=== PATIENT | female | born 1950 | race Caucasian/White ===

== ENCOUNTER → 2016-05-02 | Outpatient (CLI) | payer BC ==
[~2016-05-02] MED LIST: CHOL2000 PO; HYDR-5688 PO; ONDA8TAB6 PO; PROC1TAB5 PO; TRAZ50TA35 PO; VITAMIN D PO
--- NOTE | 2016-05-02 16:06 | ECHOCARDIOGRAM REPORT ---
*NOTICE TO RECEIVING REPUBLICAN AGENCY This information is strictly Confidential and protected under [place] law. [place] law prohibits you from making any further disclosure of this information unless further disclosure is expressly permitted by the written consent of the person to whom it pertains or is authorized by law. A general authorization for the release of medical or other information is not sufficient for this purpose. Hospital accepts no responsibility if the information is made available to any other person, INCLUDING THE PATIENT. Interpretation Summary * Name: ASAF ACUÑA Study Date: 05/02/2016 02:53 PM * Patient Location: [facility] HR: 83 * : 1950 (M/d/yyyy) Gender: Female Height: 66 in * Age: 65 yrs Ethnicity: [place] Weight: 135 lb * Ordering Physician: ALICIA DUPREE CRNP * Performed By: Britney Pan RCS * * Reason For Study: EVAL EF BEFORE RECEIVING HERPECIN * BSA: 1.7 m2 * -- Conclusions -- * 1. Normal LV size. Normal LV wall thickness. * 2. Normal LV systolic function. LVEF 60-65%. No regional wall motion abnormalities. Grade 2 diastolic dysfunction. * 3. Normal RV size and function. * 4. No significant valvular pathology. * 5. Normal estimated PA and RA pressures. * 6. Compared with prior study on 01/26/2016: No significant change Procedure Details * A complete two-dimensional transthoracic echocardiogram was performed (2D, M-mode, Doppler and color flow Doppler). Left Ventricle * The left ventricle is grossly normal size. * There is normal left ventricular wall thickness. * Ejection Fraction = 60-65%. * No regional wall motion abnormalities noted. Right Ventricle * The right ventricle is grossly normal size. * The right ventricular systolic function is normal as assessed by tricuspid annular plane systolic excursion (TAPSE) (normal >1.5 cm). Atria * The left atrial size is normal. * Right atrial size is normal. * No ASD detected; PFO is not assessed. Mitral Valve * The mitral valve is grossly normal. * Significant mitral regurgitation is absent. Tricuspid Valve * The tricuspid valve is not well visualized, but is grossly normal. * There is no tricuspid stenosis. * There is trace tricuspid regurgitation. Aortic Valve * The aortic valve opens well. * The aortic valve is trileaflet. * No hemodynamically significant valvular aortic stenosis. * There is no significant aortic regurgitation. Pulmonic Valve * The pulmonary valve is inadequately visualized, but the Doppler data is adequate for interpretation. * There is no pulmonic valvular stenosis. * There is no significant pulmonary regurgitation. Great Vessels * The aortic root and proximal ascending aorta are normal sized. * No Doppler or imaging evidence of an aortic coarctation. Pericardium/Pleural * There is no pericardial effusion. Great Vessels * Normal inferior vena cava size and collapsability with sniff indicates a normal right atrial pressure of 3 mmHg Left Ventricular Diastolic Function * Diastolic dysfunction, Grade II (pseudonormalization pattern). MMode 2D Measurements and Calculations IVSd 1.0 cm IVSs 1.3 cm LVIDd 4.4 cm LVIDs 3.2 cm LVPWd 0.81 cm LVPWs 1.2 cm IVS/LVPW 1.3 FS 26.4 % EDV(Teich) 87.2 ml ESV(Teich) 41.9 ml EF(Teich) 51.9 % EDV(cubed) 84.5 ml ESV(cubed) 33.7 ml EF(cubed) 60.1 % % IVS thick 25.4 % % LVPW thick 47.6 % LV mass(C)d 130.7 grams LV mass(C)dI 77.2 grams/m\S\2 LV mass(C)s 127.5 grams LV mass(C)sI 75.3 grams/m\S\2 SV(Teich) 45.3 ml SI(Teich) 26.7 ml/m\S\2 SV(cubed) 50.8 ml SI(cubed) 30.0 ml/m\S\2 LVOT diam 2.0 cm LVOT area 3.2 cm\S\2 LVAd ap4 29.1 cm\S\2 LVLd ap4 7.2 cm EDV(MOD-sp4) 95.3 ml EDV(sp4-el) 99.9 ml LVAs ap4 16.6 cm\S\2 LVLs ap4 6.1 cm ESV(MOD-sp4) 38.4 ml ESV(sp4-el) 38.3 ml EF(MOD-sp4) 59.7 % EF(sp4-el) 61.7 % LVAd ap2 23.7 cm\S\2 LVLd ap2 7.0 cm EDV(MOD-sp2) 65.4 ml EDV(sp2-el) 68.0 ml LVAs ap2 14.5 cm\S\2 LVLs ap2 6.4 cm ESV(MOD-sp2) 28.2 ml ESV(sp2-el) 27.9 ml EF(MOD-sp2) 56.9 % EF(sp2-el) 59.1 % LVLd %diff -3.28 % EDV(MOD-bp) 79.5 ml LVLs %diff 3.7 % ESV(MOD-bp) 33.4 ml EF(MOD-bp) 58.0 % SV(MOD-sp4) 56.9 ml SI(MOD-sp4) 33.6 ml/m\S\2 SV(MOD-sp2) 37.2 ml SI(MOD-sp2) 22.0 ml/m\S\2 SV(MOD-bp) 46.1 ml SI(MOD-bp) 27.2 ml/m\S\2 SV(sp4-el) 61.6 ml SI(sp4-el) 36.4 ml/m\S\2 SV(sp2-el) 40.2 ml SI(sp2-el) 23.7 ml/m\S\2 Doppler Measurements and Calculations MV E max janny 83.0 cm/sec MV A max janny 64.7 cm/sec MV E/A 1.3 MV P1/2t max janny 88.0 cm/sec MV P1/2t 49.3 msec MVA(P1/2t) 4.5 cm\S\2 MV dec slope 522.8 cm/sec\S\2 MV dec time 0.21 sec Ao V2 max 128.4 cm/sec Ao max PG 6.6 mmHg Ao max PG (full) 1.1 mmHg RAFITA(V,A) 2.9 cm\S\2 RAFITA(V,D) 2.9 cm\S\2 LV V1 max PG 5.5 mmHg LV V1 max 117.6 cm/sec PA V2 max 73.0 cm/sec PA max PG 2.1 mmHg
== END | disposition home or self-care (01) ==
LOC: C.CPL 13:47
PROVIDERS: ATTEND Nurse Practitioner
DX: C50.512 Malignant neoplasm of lower-outer quadrant of left female breast (principal)

== ENCOUNTER → 2016-07-31 | Outpatient (CLI) | payer BC ==
[~2016-07-31] MED LIST changes: -HYDR-5688 PO; -VITAMIN D PO
--- NOTE | 2016-07-31 16:01 | ECHOCARDIOGRAM REPORT ---
*NOTICE TO RECEIVING CONSTITUTION PARTY AGENCY This information is strictly Confidential and protected under [place] law. [place] law prohibits you from making any further disclosure of this information unless further disclosure is expressly permitted by the written consent of the person to whom it pertains or is authorized by law. A general authorization for the release of medical or other information is not sufficient for this purpose. Hospital accepts no responsibility if the information is made available to any other person, INCLUDING THE PATIENT. Interpretation Summary * Name: ASAF ACUÑA Study Date: 07/31/2016 02:09 PM BP: 109/39 mmHg * Patient Location: [facility] HR: 72 * : 1950 (M/d/yyyy) Gender: Female Height: 65 in * Age: 66 yrs Ethnicity: CA Weight: 140 lb * Ordering Physician: Jp Lozada * Referring Physician: Jp Lozada D.O. * Performed By: Elida Cisneros * * Reason For Study: NEOPLASM, BREAST CA * BSA: 1.7 m2 * -- Conclusions -- * 1. Normal left ventricular size and systolic function. EF 60-65%. No regional wall motion abnormalities. No significant left ventricular hypertrophy. Diastolic dysfunction, Grade II (pseudonormalization pattern). * 2. No significant valvular abnormalities visualized. * 3. Normal estimated right ventricular systolic pressure. * 4. No significant change from prior study on 05/02/2016. Procedure Details * A complete two-dimensional transthoracic echocardiogram was performed (2D, M-mode, Doppler and color flow Doppler). Left Ventricle * Normal left ventricular size and systolic function. EF 60-65%. No regional wall motion abnormalities. No significant left ventricular hypertrophy. * Ejection Fraction = 60-65%. Right Ventricle * The right ventricle is normal in size and function. * The right ventricular systolic function is normal as assessed by tricuspid annular plane systolic excursion (TAPSE) (normal >1.5 cm). Atria * The left atrial size is normal. * Right atrial size is normal. * There is no evidence of atrial septal defect, but resolution does not allow assessment for a patent foramen ovale. Mitral Valve * The mitral valve is normal in structure and function. * There is no mitral valve stenosis. * There is trace mitral regurgitation. Tricuspid Valve * The tricuspid valve anatomy is normal. * There is no tricuspid stenosis. * There is trace tricuspid regurgitation. Aortic Valve * The aortic valve is normal in structure and function. * The aortic valve is trileaflet. * No hemodynamically significant valvular aortic stenosis. * No aortic regurgitation is present. Pulmonic Valve * The pulmonic valve is not well seen, but is grossly normal. * There is no pulmonic valvular stenosis. * Trace pulmonic valvular regurgitation. Great Vessels * The aortic root is normal size. * Ascending aorta of normal dimension Pericardium/Pleural * There is no pericardial effusion. Great Vessels * Mildly dilated IVC. Left Ventricular Diastolic Function * Diastolic dysfunction, Grade II (pseudonormalization pattern). MMode 2D Measurements and Calculations IVSd 1.0 cm IVSs 1.4 cm LVIDd 4.4 cm LVIDs 2.8 cm LVPWd 1.1 cm LVPWs 1.6 cm IVS/LVPW 0.95 FS 34.6 % EDV(Teich) 85.6 ml ESV(Teich) 30.8 ml EF(Teich) 64.0 % EDV(cubed) 82.6 ml ESV(cubed) 23.1 ml EF(cubed) 72.0 % % IVS thick 43.2 % % LVPW thick 51.7 % LV mass(C)d 153.0 grams LV mass(C)dI 90.0 grams/m\S\2 LV mass(C)s 153.1 grams LV mass(C)sI 90.1 grams/m\S\2 SV(Teich) 54.7 ml SI(Teich) 32.2 ml/m\S\2 SV(cubed) 59.4 ml SI(cubed) 35.0 ml/m\S\2 Ao root diam 2.9 cm Ao root area 6.8 cm\S\2 ACS 1.3 cm LA dimension 3.0 cm asc Aorta Diam 2.7 cm LA/Ao 1.0 LVOT diam 2.0 cm LVOT area 3.2 cm\S\2 LVAd ap4 25.9 cm\S\2 LVLd ap4 7.1 cm EDV(MOD-sp4) 77.8 ml EDV(sp4-el) 80.0 ml LVAs ap4 14.0 cm\S\2 LVLs ap4 5.8 cm ESV(MOD-sp4) 28.5 ml ESV(sp4-el) 28.9 ml EF(MOD-sp4) 63.4 % EF(sp4-el) 63.9 % LVAd ap2 23.6 cm\S\2 LVLd ap2 7.4 cm EDV(MOD-sp2) 61.7 ml EDV(sp2-el) 64.0 ml LVAs ap2 12.2 cm\S\2 LVLs ap2 5.7 cm ESV(MOD-sp2) 21.8 ml ESV(sp2-el) 21.9 ml EF(MOD-sp2) 64.7 % EF(sp2-el) 65.8 % LVLd %diff 3.8 % EDV(MOD-bp) 71.1 ml LVLs %diff -1.10 % ESV(MOD-bp) 24.9 ml EF(MOD-bp) 65.0 % SV(MOD-sp4) 49.3 ml SI(MOD-sp4) 29.0 ml/m\S\2 SV(MOD-sp2) 39.9 ml SI(MOD-sp2) 23.5 ml/m\S\2 SV(MOD-bp) 46.2 ml SI(MOD-bp) 27.2 ml/m\S\2 SV(sp4-el) 51.1 ml SI(sp4-el) 30.1 ml/m\S\2 SV(sp2-el) 42.1 ml SI(sp2-el) 24.8 ml/m\S\2 Doppler Measurements and Calculations MV E max janny 85.2 cm/sec MV A max janny 72.1 cm/sec MV E/A 1.2 MV dec time 0.19 sec Ao V2 max 137.7 cm/sec Ao max PG 7.6 mmHg Ao max PG (full) 2.6 mmHg RAFITA(V,A) 2.6 cm\S\2 RAFITA(V,D) 2.6 cm\S\2 LV V1 max PG 5.0 mmHg LV V1 max 111.6 cm/sec PA V2 max 72.3 cm/sec PA max PG 2.1 mmHg TR max janny 230.7 cm/sec RVSP(TR) 29.3 mmHg RAP systole 8.0 mmHg
== END | disposition home or self-care (01) ==
LOC: C.CPL 13:52
PROVIDERS: ATTEND Internal Medicine Hematology & Oncology
DX: C50.512 Malignant neoplasm of lower-outer quadrant of left female breast (principal)

== ENCOUNTER → 2016-09-27 | Outpatient (CLI) | payer BC ==
[2016-09-27 14:05] VITALS: BP 124/78; PULSE 70; TEMP 36.5; O2SAT 98
--- NOTE | 2016-09-28 09:25 | Radiation Oncology Follow-Up ---
Radiation Oncology Follow-Up Date of Visit Sep 28, 2016. (Rachael Valenzuela PA-C) Reason For Visit One-month follow-up in cancer survivorship care plan (Rachael Valenzuela PA-C) Radiation Completion Date 08/29/16 (Rachael Valenzuela PA-C) Diagnosis (1) Breast cancer Onset Date: 01/09/2016 Location: lobular Stage: l Permanent Comment: DIAGNOSIS: 1. Right breast, invasive ductal carcinoma, ER/CA positive, Her2 negative, pT1bN0, stage IA -s/p Lumpectomy/SLN, radiation therapy (5006 cGy/19 fractions, 03/2013, [facility], Dr. Wall) 2. Left breast, invasive lobular carcinoma, grade 1, ER/CA/Her2 positive, pT1bN0 , stage IA -s/p lumpectomy/SLN, adjuvant chemotherapy ([facility] chemotherapy, Dr. Lozada) Status post completion of radiation therapy 08/29/2016 received 6640 cGy Last Edited By: Rachael Valenzuela on Sep 14, 2016 10:14 (Rachael Valenzuela PA-C) History of Present Illness Ms. Patricia is a 66-year-old female who presents with a previous history of stage I right breast cancer diagnosed in treated in 2012 with a lumpectomy/SLN followed by adjuvant radiation therapy in anti-hormonal therapy (please refer to previous radiation oncology consultation for more information, 02/06/2013, Dr. Wes Wall). 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 More recently, the patient did have a MRI of the bilateral breasts on 2015 which revealed a new irregular mass in the left breast. The patient subsequently underwent targeted ultrasound and mammographic imaging of the left breast which confirmed a solid mass in the left breast in the lower-outer quadrant at the 5 o'clock position 8 cm from the nipple highly suggestive of malignancy. There were no suspicious lymph nodes noted. The patient subsequently underwent a targeted biopsy of the left breast mass which revealed pleomorphic type invasive lobular carcinoma as well as lobular carcinoma in situ. The patient was seen by Dr. Rice who recommended a lumpectomy and sentinel lymph node biopsy. The patient underwent a lumpectomy and sentinel lymph node biopsy on 01/13/2016 which revealed invasive lobular carcinoma, pleomorphic type , moderately differentiated that measured 7.5 mm in the greatest dimension. The margins were negative and the closest margin was 2.9 mm. There was no evidence of ductal carcinoma in situ or lymphovascular space invasion. 5 sentinel lymph nodes were excised and all the lymph nodes were negative. The patient was staged as [id number], stage IA. The patient subsequently received 3 cycles of TCH chemotherapy underneath the supervision of Dr. Jp Lozada. Dr. Lozada has recommended anti-hormonal therapy following the completion of radiation therapy. We are now seeing the patient in consultation discuss the role of radiation therapy. She completed her systemic chemotherapy. An returned and underwent radiation therapy. She was treated with conventional treatment. This was completed 08/29. She received 6400 cGy. (Rachael Valenzuela PA-C) Interim History She has been doing well over the past month. The irritation of the skin that occurred at the end of treatment resolved without difficulty. She denies any areas of discomfort. She has noted no masses or changes of the axilla. She has noticed no swelling of her arm. She is scheduled to see her breast surgeon and have mammography in November. She is followed by medical oncology and continues on Herceptin every 3 weeks. She is also been set up for a DEXA scan in no be discussion of adjuvant endocrine therapy. (Rachael Valenzuela PA-C) Allergies Coded Allergies: No Known Allergies (Unverified , 02/08/16) Home Medications Scheduled Cholecalciferol (Vitamin D3), 1 CAP PO DAILY Scheduled PRN Ondansetron Hcl (Zofran), 8 MG PO Q8 PRN for Nausea Prochlorperazine Maleate (Compazine), 1 TAB PO Q6 PRN for Nausea or Vomiting Trazodone Hcl (Trazodone), 50 MG PO HS PRN for Insomnia Review of Systems Gastrointestinal: Symptoms: WNL Oral: Symptoms: No Problems Other Oral Symptoms: Small sore in left nostril - says shes had a long time not healing Respiratory: Symptoms: WNL, SOB With Exertion Other Respiratory: CUELLAR Urinary: Symptoms: WNL Skin: Symptoms: No Problems Other Skin Symptoms: Healed completely since finishing radiation Breast: Right Upper Arm Measurement: 26.9 Right Mid Arm Measurement: 22.2 Right Wrist Measurement: 15.3 Left Upper Arm Measurement: 26.2 Left Mid Arm Measurement: 21.9 Left Wrist Measurement: 15.1 Arm Dominence: Right (Rachael Valenzuela PA-C) Physical Exam Vital Signs Date Time Temp Pulse Resp B/P (MAP) Pulse Ox O2 Delivery O2 Flow Rate FiO2 09/27/16 14:05 36.5 70 14 124/78 98 Fatigue: None General Appearance: no apparent distress Eyes: normal inspection, EOMI ENT: normal ENT inspection, hearing grossly normal Neck: no adenopathy, thyroid normal Respiratory/Chest: lungs clear, no respiratory distress, no accessory muscle use Breast: Breast examination reveals well-healed incisions of both breasts. There is mild resolving hyperpigmentation on the left. There are no masses or tenderness and no axillary adenopathy. She has no skin retractions or nipple changes. There is no telangiectasis on the left. There is one small area noted on the right. There is mild fibrous changes in the area of the incision on the right. Bilaterally using the [place] score of cosmesis she has a good outcome. Cardiovascular: regular rate, rhythm, no gallop, no murmur Abdomen: non tender Extremities: no pedal edema Neurologic/Psychiatric: no motor/sensory deficits, alert, normal mood/affect Skin: warm/dry (Rachael Valenzuela PA-C) Laboratory Studies Test 09/05/16 09:20 09/26/16 09:30 White Blood Count 3.72 K/uL (4.8-10.8) 4.21 K/uL (4.8-10.8) Red Blood Count 3.66 M/uL (4.2-5.4) 3.93 M/uL (4.2-5.4) Hemoglobin 11.6 g/dL (12.0-16.0) 12.0 g/dL (12.0-16.0) Hematocrit 35.3 % (37-47) 36.7 % (37-47) Mean Corpuscular Volume 96.4 fL (80-100) 93.4 fL (80-100) Mean Corpuscular Hemoglobin 31.7 pg (25-34) 30.5 pg (25-34) Mean Corpuscular Hemoglobin Concent 32.9 g/dl (32-36) 32.7 g/dl (32-36) Platelet Count 232 K/uL (130-400) 232 K/uL (130-400) Mean Platelet Volume 8.3 fL (7.4-10.4) 8.3 fL (7.4-10.4) Neutrophils (%) (Auto) 54.8 % 50.3 % Lymphocytes (%) (Auto) 35.2 % 35.6 % Monocytes (%) (Auto) 7.8 % 11.2 % Eosinophils (%) (Auto) 1.9 % 2.4 % Basophils (%) (Auto) 0.3 % 0.5 % Neutrophils # (Auto) 2.04 K/uL (1.4-6.5) 2.12 K/uL (1.4-6.5) Lymphocytes # (Auto) 1.31 K/uL (1.2-3.4) 1.50 K/uL (1.2-3.4) Monocytes # (Auto) 0.29 K/uL (0.11-0.59) 0.47 K/uL (0.11-0.59) Eosinophils # (Auto) 0.07 K/uL (0-0.5) 0.10 K/uL (0-0.5) Basophils # (Auto) 0.01 K/uL (0-0.2) 0.02 K/uL (0-0.2) RDW Standard Deviation 47.1 fL (36.4-46.3) 42.6 fL (36.4-46.3) RDW Coefficient of Variation 13.4 % (11.5-14.5) 12.5 % (11.5-14.5) Immature Granulocyte % (Auto) 0.0 % 0.0 % Immature Granulocyte # (Auto) 0.00 K/uL (0.00-0.02) 0.00 K/uL (0.00-0.02) Sodium Level 147 mmol/L (136-145) 143 mmol/L (136-145) Potassium Level 4.0 mmol/L (3.5-5.1) 4.1 mmol/L (3.5-5.1) Chloride Level 111 mmol/L (98-107) 108 mmol/L (98-107) Carbon Dioxide Level 32 mmol/L (21-32) 30 mmol/L (21-32) Anion Gap 4.0 mmol/L (3-11) 5.0 mmol/L (3-11) Blood Urea Nitrogen 20 mg/dl (7-18) 24 mg/dl (7-18) Creatinine 0.76 mg/dl (0.60-1.20) 0.88 mg/dl (0.60-1.20) Est Creatinine Clear Calc Drug Dose 62.9 ml/min 54.3 ml/min Estimated GFR () 94.7 79.4 Estimated GFR (Non- 81.7 68.5 BUN/Creatinine Ratio 26.5 (10-20) 27.3 (10-20) Random Glucose 117 mg/dl (70-99) 118 mg/dl (70-99) Calcium Level 8.7 mg/dl (8.5-10.1) 8.9 mg/dl (8.5-10.1) Magnesium Level 1.9 mg/dl (1.8-2.4) 2.1 mg/dl (1.8-2.4) Total Bilirubin 0.3 mg/dl (0.2-1) 0.4 mg/dl (0.2-1) Aspartate Amino Transferase (AST) 14 U/L (15-37) 21 U/L (15-37) Alanine Aminotransferase (ALT) 21 U/L (12-78) 22 U/L (12-78) Alkaline Phosphatase 72 U/L (45-117) 81 U/L (45-117) Lactate Dehydrogenase 159 U/L (84-246) 182 U/L (84-246) Total Protein 6.6 gm/dl (6.4-8.2) 6.8 gm/dl (6.4-8.2) Albumin 3.4 gm/dl (3.4-5.0) 3.7 gm/dl (3.4-5.0) Globulin 3.2 gm/dl (2.5-4.0) 3.1 gm/dl (2.5-4.0) Albumin/Globulin Ratio 1.1 (0.9-2) 1.2 (0.9-2) (Rachael Valenzuela PA-C) Assessment & Plan Plan: The patient was also seen and examined by Dr. Adrian. Continue follow-up with Dr. Lozada. She continues on Herceptin every 3 weeks. She is going to have a DEXA scan and he will discuss with her adjuvant endocrine therapy. She is scheduled to see her breast surgeon and have mammography in November. She will also be scheduled for an MRI in the future through the breast surgeons office. Today we completed a cancer survivorship care plan. A copy of the document was given to the patient. We asked her to return to our office in 6-12 months depending on her schedule with her other providers. She may call our office if she has any questions or concerns in the interim. (Rachael Valenzuela PA-C) I agree with note created by Rachael Valenzuela PA-C. I reviewed the patient's chart and information with her. I have examined and evaluated the patient. I reviewed relevant clinical information and answered the patient's and/or family' s questions. (Veeral. Adrian MD) Total Time In Follow-Up I spent 20 minutes speaking to the patient and performing examination. I spent 20 minutes reviewing information, preparing the survivorship document, and completing this note. (Rachael Valenzuela PA-C) I spent 15 minutes examining and counseling the patient. (Veeral. Adrian MD) Copy To Jatin Simon M.D.; Jp Lozada D.O.; Shasta Rice M.D. Problem Qualifiers (1) Breast cancer: Breast location: lower outer quadrant of breast Estrogen receptor status: positive Patient sex: female Laterality: left Qualified Codes: C50.512 - Malignant neoplasm of lower-outer quadrant of left female breast; Z17.0 - Estrogen receptor positive status [ER+]
== END | disposition home or self-care (01) ==
LOC: C.ONC 12:52
PROVIDERS: ATTEND Physician Assistant Medical
DX: Z08 Encounter for follow-up examination after completed treatment for malignant neoplasm (principal); Z92.3 Personal history of irradiation; Z85.3 Personal history of malignant neoplasm of breast

== ENCOUNTER → 2016-11-28 | Outpatient (CLI) | payer BC ==
--- NOTE | 2016-11-29 11:50 | ECHOCARDIOGRAM REPORT ---
*NOTICE TO RECEIVING REPUBLICAN AGENCY This information is strictly Confidential and protected under [place] law. [place] law prohibits you from making any further disclosure of this information unless further disclosure is expressly permitted by the written consent of the person to whom it pertains or is authorized by law. A general authorization for the release of medical or other information is not sufficient for this purpose. Hospital accepts no responsibility if the information is made available to any other person, INCLUDING THE PATIENT. Interpretation Summary * Name: ASAF ACUÑA Study Date: 11/28/2016 03:10 PM BP: 109/57 mmHg * Patient Location: [facility] HR: 67 * : 1950 (M/d/yyyy) Gender: Female Height: 65 in * Age: 66 yrs Ethnicity: [place] Weight: 136 lb * Referring Physician: GAMAL * Performed By: Kimmy Delong RDCS * * Reason For Study: BREAST CA, CHECK EF FOR HERCEPTIN * BSA: 1.7 m2 * -- Conclusions -- * Left ventricular systolic function is normal. * The atrial septum is aneurysmal. * Right ventricular systolic pressure is normal. * Compared to a study from 07/2016, there is no change. Procedure Details * A complete two-dimensional transthoracic echocardiogram was performed (2D, M-mode, Doppler and color flow Doppler). Left Ventricle * The left ventricle is normal in size. * There is normal left ventricular wall thickness. * Ejection Fraction = 60-65%. * Left ventricular systolic function is normal. * Overall function is normal with some mild hypokinesis of the anterior apex. * There are regional wall motion abnormalities as specified. Right Ventricle * The right ventricle is normal in size and function. Atria * The left atrial size is normal. * Right atrial size is normal. * Chiari network (normal variant) is noted. * The atrial septum is aneurysmal. Mitral Valve * The mitral valve is grossly normal. * There is trace mitral regurgitation. Tricuspid Valve * The tricuspid valve is not well visualized, but is grossly normal. * There is trace tricuspid regurgitation. * Right ventricular systolic pressure is normal. Aortic Valve * The aortic valve is normal in structure and function. * No hemodynamically significant valvular aortic stenosis. * There is no significant aortic regurgitation. Great Vessels * The aortic root is normal size. Pericardium/Pleural * There is no pericardial effusion. MMode 2D Measurements and Calculations IVSd 0.81 cm IVSs 1.2 cm LVIDd 4.5 cm LVIDs 3.0 cm LVPWd 0.84 cm LVPWs 1.5 cm IVS/LVPW 0.96 FS 33.7 % EDV(Teich) 94.1 ml ESV(Teich) 35.2 ml EF(Teich) 62.6 % EDV(cubed) 93.2 ml ESV(cubed) 27.2 ml EF(cubed) 70.8 % % IVS thick 48.7 % % LVPW thick 77.1 % LV mass(C)d 119.0 grams LV mass(C)dI 70.9 grams/m\S\2 LV mass(C)s 130.9 grams LV mass(C)sI 77.9 grams/m\S\2 SV(Teich) 58.9 ml SI(Teich) 35.1 ml/m\S\2 SV(cubed) 66.0 ml SI(cubed) 39.3 ml/m\S\2 Ao root diam 2.9 cm Ao root area 6.5 cm\S\2 LA dimension 2.6 cm LA/Ao 0.90 LVAd ap4 25.9 cm\S\2 LVLd ap4 7.0 cm EDV(MOD-sp4) 77.9 ml EDV(sp4-el) 80.8 ml LVAs ap4 15.3 cm\S\2 LVLs ap4 6.3 cm ESV(MOD-sp4) 33.2 ml ESV(sp4-el) 31.6 ml EF(MOD-sp4) 57.4 % EF(sp4-el) 60.9 % LVAd ap2 23.4 cm\S\2 LVLd ap2 7.4 cm EDV(MOD-sp2) 63.6 ml EDV(sp2-el) 62.6 ml LVAs ap2 13.4 cm\S\2 LVLs ap2 6.6 cm ESV(MOD-sp2) 27.9 ml ESV(sp2-el) 23.4 ml EF(MOD-sp2) 56.2 % EF(sp2-el) 62.7 % LVLd %diff 4.7 % EDV(MOD-bp) 69.4 ml LVLs %diff 4.0 % ESV(MOD-bp) 29.8 ml EF(MOD-bp) 57.1 % SV(MOD-sp4) 44.7 ml SI(MOD-sp4) 26.6 ml/m\S\2 SV(MOD-sp2) 35.7 ml SI(MOD-sp2) 21.3 ml/m\S\2 SV(MOD-bp) 39.6 ml SI(MOD-bp) 23.6 ml/m\S\2 SV(sp4-el) 49.2 ml SI(sp4-el) 29.3 ml/m\S\2 SV(sp2-el) 39.3 ml SI(sp2-el) 23.4 ml/m\S\2 Doppler Measurements and Calculations MV E max janny 53.6 cm/sec MV A max janny 46.2 cm/sec MV E/A 1.2 MV dec time 0.21 sec Ao V2 max 119.4 cm/sec Ao max PG 5.7 mmHg Ao max PG (full) 3.6 mmHg LV V1 max PG 2.1 mmHg LV V1 max 73.1 cm/sec TR max janny 211.8 cm/sec
== END | disposition home or self-care (01) ==
LOC: C.CPL 14:57
PROVIDERS: ATTEND Internal Medicine Hematology & Oncology
DX: C50.512 Malignant neoplasm of lower-outer quadrant of left female breast (principal)

== ENCOUNTER → 2016-12-19 | Outpatient (CLI) | payer BC | END | disposition home or self-care (01) | LOC: C.LAB 12:47 | PROVIDERS: ATTEND Internal Medicine | DX: C50.919 Malignant neoplasm of unspecified site of unspecified female breast (principal) ==

== ENCOUNTER → 2017-04-12 | Outpatient (CLI) | payer BC ==
[~2017-04-12] MED LIST changes: +ONDA-170 PO; -ONDA8TAB6 PO; +PROC10TA PO; -PROC1TAB5 PO; +TAMO20TA9 PO
--- NOTE | 2017-04-12 17:55 | ECHOCARDIOGRAM REPORT ---
*NOTICE TO RECEIVING DEMOCRAT AGENCY This information is strictly Confidential and protected under [place] law. [place] law prohibits you from making any further disclosure of this information unless further disclosure is expressly permitted by the written consent of the person to whom it pertains or is authorized by law. A general authorization for the release of medical or other information is not sufficient for this purpose. Hospital accepts no responsibility if the information is made available to any other person, INCLUDING THE PATIENT. Interpretation Summary * Name: ASAF ACUÑA Study Date: 04/12/2017 12:58 PM BP: 131/61 mmHg * Patient Location: [facility] HR: 61 * : 1950 (M/d/yyyy) Gender: Female Height: 65 in * Age: 66 yrs Ethnicity: CA Weight: 138 lb * Ordering Physician: Jp Lozada * Referring Physician: Jp Lozada D.O. * Performed By: Luna Pereira RCS * * Reason For Study: Breast CA, Eval EF on Herceptin * BSA: 1.7 m2 * -- Conclusions -- * 1. Normal left ventricular size and systolic function. FE 55-60%. No definite regional wall motion abnormalities. No left ventricular hypertrophy. * 2. No significant valvular abnormalities visualized. * 3. Normal estimated right ventricular systolic pressure; RVSP 23 mmHg. * 4. No significant change from prior study on 11/28/2016. Procedure Details * A complete two-dimensional transthoracic echocardiogram was performed (2D, M-mode, Doppler and color flow Doppler). Left Ventricle * Normal left ventricular size and systolic function. FE 55-60%. No definite regional wall motion abnormalities. No left ventricular hypertrophy. Right Ventricle * The right ventricle is normal in size and function. * The right ventricular systolic function is normal as assessed by tricuspid annular plane systolic excursion (TAPSE) (normal >1.5 cm). Atria * Borderline left atrial enlargement. * Right atrial size is normal. * There is no evidence of atrial septal defect, but resolution does not allow assessment for a patent foramen ovale. * The atrial septum is aneurysmal. Mitral Valve * The mitral valve is grossly normal. * There is no mitral valve stenosis. * There is trace mitral regurgitation. Tricuspid Valve * The tricuspid valve is not well visualized, but is grossly normal. * There is no tricuspid stenosis. * There is mild tricuspid regurgitation. Aortic Valve * The aortic valve is trileaflet. * No hemodynamically significant valvular aortic stenosis. * There is no significant aortic regurgitation. Pulmonic Valve * The pulmonary valve is inadequately visualized, but the Doppler data is adequate for interpretation. * There is no pulmonic valvular stenosis. * There is no significant pulmonary regurgitation. Great Vessels * The aortic root is normal size. Pericardium/Pleural * There is no pericardial effusion. Great Vessels * Normal inferior vena cava size and collapsability with sniff indicates a normal right atrial pressure of 3 mmHg MMode 2D Measurements and Calculations IVSd 1.0 cm IVSs 1.2 cm LVIDd 4.3 cm LVIDs 3.0 cm LVPWd 1.0 cm LVPWs 1.2 cm IVS/LVPW 0.99 FS 29.7 % EDV(Teich) 81.2 ml ESV(Teich) 34.8 ml EF(Teich) 57.2 % EDV(cubed) 77.3 ml ESV(cubed) 26.8 ml EF(cubed) 65.3 % % IVS thick 15.2 % % LVPW thick 20.9 % LV mass(C)d 144.9 grams LV mass(C)dI 85.8 grams/m\S\2 LV mass(C)s 110.0 grams LV mass(C)sI 65.1 grams/m\S\2 SV(Teich) 46.4 ml SI(Teich) 27.5 ml/m\S\2 SV(cubed) 50.5 ml SI(cubed) 29.9 ml/m\S\2 Ao root diam 2.9 cm Ao root area 6.8 cm\S\2 ACS 1.6 cm LA dimension 2.8 cm asc Aorta Diam 3.0 cm LA/Ao 0.97 LVAd ap4 26.3 cm\S\2 LVLd ap4 7.6 cm EDV(MOD-sp4) 66.7 ml EDV(sp4-el) 76.9 ml LVAs ap4 15.3 cm\S\2 LVLs ap4 6.2 cm ESV(MOD-sp4) 28.8 ml ESV(sp4-el) 31.9 ml EF(MOD-sp4) 56.8 % EF(sp4-el) 58.5 % EDV(MOD-sp2) 84.0 ml ESV(MOD-sp2) 35.0 ml EF(MOD-sp2) 58.3 % SV(MOD-sp4) 37.9 ml SI(MOD-sp4) 22.4 ml/m\S\2 SV(MOD-sp2) 49.0 ml SI(MOD-sp2) 29.0 ml/m\S\2 SV(sp4-el) 44.9 ml SI(sp4-el) 26.6 ml/m\S\2 Doppler Measurements and Calculations MV E max janny 67.3 cm/sec MV A max janny 64.7 cm/sec MV E/A 1.0 MV P1/2t max janny 67.2 cm/sec MV P1/2t 58.0 msec MVA(P1/2t) 3.8 cm\S\2 MV dec slope 339.4 cm/sec\S\2 MV dec time 0.19 sec Ao V2 max 116.5 cm/sec Ao max PG 5.4 mmHg Ao max PG (full) 0.96 mmHg LV V1 max PG 4.5 mmHg LV V1 max 105.7 cm/sec PA V2 max 85.4 cm/sec PA max PG 2.9 mmHg PI max janny 128.1 cm/sec PI max PG 6.6 mmHg TR max janny 222.1 cm/sec RVSP(TR) 22.8 mmHg RAP systole 3.0 mmHg
== END | disposition home or self-care (01) ==
LOC: C.CPL 12:51
PROVIDERS: ATTEND Internal Medicine Hematology & Oncology
DX: C50.512 Malignant neoplasm of lower-outer quadrant of left female breast (principal)

== ENCOUNTER → 2017-04-17 | Outpatient (CLI) | payer BC ==
[~2017-04-17] MED LIST changes: -ONDA-170 PO; +ONDA8TAB6 PO; -PROC10TA PO; +PROC1TAB5 PO
[2017-04-17 13:24] VITALS: BP 123/71; PULSE 77; TEMP 36.8; O2SAT 95
--- NOTE | 2017-04-17 16:07 | Radiation Oncology Follow-Up ---
Radiation Oncology Follow-Up Date of Visit Apr 17, 2017. Reason For Visit Six-month follow-up Radiation Completion Date finished 08-29-2016 left breast and right breast Diagnosis (1) Breast cancer Onset Date: 01/09/2016 Histology Subtype: lobular Stage: l Permanent Comment: DIAGNOSIS: 1. Right breast, invasive ductal carcinoma, ER/CO positive, Her2 negative, pT1bN0, stage IA -s/p Lumpectomy/SLN, radiation therapy (5006 cGy/19 fractions, 03/2013, [facility], Dr. Wall) 2. Left breast, invasive lobular carcinoma, grade 1, ER/CO/Her2 positive, pT1bN0 , stage IA -s/p lumpectomy/SLN, adjuvant chemotherapy ([facility] chemotherapy, Dr. Lozada) Status post completion of radiation therapy 08/29/2016 received 6640 cGy Last Edited By: Rachael Valenzuela on Sep 14, 2016 10:14 History of Present Illness Ms. Patricia has a previous history of stage I right breast cancer diagnosed in treated in 2012 with a lumpectomy/SLN followed by adjuvant radiation therapy in anti-hormonal therapy (please refer to previous radiation oncology consultation for more information, 02/06/2013, Dr. Wes Wall). 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 More recently, the patient did have a MRI of the bilateral breasts on 2015 which revealed a new irregular mass in the left breast. The patient subsequently underwent targeted ultrasound and mammographic imaging of the left breast which confirmed a solid mass in the left breast in the lower-outer quadrant at the 5 o'clock position 8 cm from the nipple highly suggestive of malignancy. There were no suspicious lymph nodes noted. The patient subsequently underwent a targeted biopsy of the left breast mass which revealed pleomorphic type invasive lobular carcinoma as well as lobular carcinoma in situ. The patient was seen by Dr. Rice who recommended a lumpectomy and sentinel lymph node biopsy. The patient underwent a lumpectomy and sentinel lymph node biopsy on 01/13/2016 which revealed invasive lobular carcinoma, pleomorphic type , moderately differentiated that measured 7.5 mm in the greatest dimension. The margins were negative and the closest margin was 2.9 mm. There was no evidence of ductal carcinoma in situ or lymphovascular space invasion. 5 sentinel lymph nodes were excised and all the lymph nodes were negative. The patient was staged as [id number], stage IA. The patient subsequently received 3 cycles of TCH chemotherapy underneath the supervision of Dr. Jp Lozada. Dr. Lozada has recommended anti-hormonal therapy following the completion of radiation therapy. We are now seeing the patient in consultation discuss the role of radiation therapy. She completed her systemic chemotherapy. An returned and underwent radiation therapy. She was treated with conventional treatment. This was completed 08/29. She received 6400 cGy. Interim History She has noticed no masses of the left breast. She does have discomfort in the inframammary fold if she tries to wear her bra. The pressure of the bra against this area causes discomfort. She has noted no masses or changes of the overlying skin. There is been no changes of her axilla. She is up-to-date on mammography. She has recheck mammograms and MRIs. These are alternating every 6 months. She is on tamoxifen. She feels that the medication has caused her to have fatigue. She did well with chemotherapy and radiation but now feels more fatigued on the medication. She'll be seeing medical oncology in the next month and plans to review that with them. She will have laboratory studies prior to that visit. Allergies Coded Allergies: No Known Allergies (Unverified , 02/08/16) Home Medications Scheduled Cholecalciferol (Vitamin D3), 1 CAP PO DAILY Tamoxifen (Nolvadex), 20 MG PO DAILY Scheduled PRN Trazodone Hcl (Trazodone), 50 MG PO HS PRN for Insomnia Review of Systems Gastrointestinal: Symptoms: WNL Oral: Symptoms: No Problems Other Oral Symptoms: Small sore in left nostril - says shes had a long time not healing Respiratory: Symptoms: WNL Other Respiratory: " I am getting over a cold " Urinary: Symptoms: WNL Skin: Symptoms: No Problems Other Skin Symptoms: Healed completely since finishing radiation Breast: Right Upper Arm Measurement: 27.0 Right Mid Arm Measurement: 23.0 Right Wrist Measurement: 15.0 Left Upper Arm Measurement: 25.5 Left Mid Arm Measurement: 21.5 Left Wrist Measurement: 15.0 Arm Dominence: Right Patient Cosmetic Evaluation: Good Staff Cosmetic Evalaluation: Good Physical Exam Vital Signs Date Time Temp Pulse Resp B/P (MAP) Pulse Ox O2 Delivery O2 Flow Rate FiO2 04/17/17 13:24 36.8 77 16 123/71 95 Fatigue: None General Appearance: no apparent distress Eyes: normal inspection, EOMI ENT: normal ENT inspection, hearing grossly normal Neck: no adenopathy, thyroid normal Respiratory/Chest: lungs clear, no respiratory distress, no accessory muscle use Breast: Breast examination reveals well-healed incisions of the right breast. There are no masses or tenderness and no axillary adenopathy. Using the [place] score cosmesis she has a excellent outcome. The left breast shows well-healed incisions. There is mild fibrous changes, tenderness, and retraction in the center of the inframammary fold. There are no distinct masses. There is no axillary adenopathy. Using the [place] score cosmesis she has a fair outcome. Cardiovascular: regular rate, rhythm, no gallop, no murmur Abdomen: non tender, soft Extremities: no pedal edema Neurologic/Psychiatric: no motor/sensory deficits, alert, normal mood/affect Skin: warm/dry Lymphatic: no adenopathy Pain Management Patient Reports Pain: No Side: Bilateral Patient Preferred Pain Scale: 0 - 10 Initial Pain Intensity: 0.0 Pain Management Plan She requires no pain management. Laboratory Laboratory Comments: We will be having laboratory studies prior to her medical oncology visit. Pathology Pathology Results: not applicable Imaging Imaging Studies: were reviewed, and pertinent findings noted below Imaging Comments She had a mammogram and MRI at . These are alternating every 6 months. A copy will be obtained for our chart. Assessment & Plan Plan: She was seen and examined by Dr. Adrian. Continue regular follow-up with her breast surgeon and medical oncology. She'll be seen at [place] in June and have an MRI as well as a visit with the breast surgeon. We discussed light massage to the area of fibrous tissue in the inframammary fold. This may lessen scar tissue and help to decrease discomfort with wearing a bra. She hasn 't appointment with medical oncology next month she'll have recheck laboratory studies. She is going to review that she has fatigue since starting the tamoxifen. We asked her to return to our office in 1 year. She may call if she has any question or concerns in the interim. Assessment & Plan (Attending) ADDENDUM: I agree with note created by Rachael Valenzuela PA-C. I reviewed the patient's chart and information with her. I have examined and evaluated the patient. I reviewed relevant clinical information and answered the patient's and /or family's questions. MAP COMPILER Total Time In Follow-Up I spent 20 minutes speaking to the patient and performing examination. I spent 15 minutes reviewing information in completing this note. Total Time (Attending) In Follow-Up I spent 15 minutes examining and counseling the patient. MAP COMPILER Copy To Jatin Simon M.D.; Jp Lozada D.O.; Shasta Rice M.D. Problem Qualifiers (1) Breast cancer: Breast location: upper outer quadrant of breast Estrogen receptor status: positive Patient sex: female Laterality: left Qualified Codes: C50.412 - Malignant neoplasm of upper-outer quadrant of left female breast; Z17.0 - Estrogen receptor positive status [ER+]
== END | disposition home or self-care (01) ==
LOC: C.ONC 13:16
PROVIDERS: ATTEND Physician Assistant Medical
DX: Z08 Encounter for follow-up examination after completed treatment for malignant neoplasm (principal); Z92.3 Personal history of irradiation; Z85.3 Personal history of malignant neoplasm of breast

== ENCOUNTER → 2017-04-23 | Outpatient (CLI) | payer BC ==
[~2017-04-23] MED LIST changes: -ONDA8TAB6 PO; -PROC1TAB5 PO
== END | disposition home or self-care (01) ==
LOC: C.MAMM 08:44
PROVIDERS: ATTEND Internal Medicine Hematology & Oncology
DX: C50.512 Malignant neoplasm of lower-outer quadrant of left female breast (principal)

== ENCOUNTER → 2017-11-29 | Outpatient (CLI) | payer OTHER, MEDICARE ==
--- NOTE | 2017-11-29 15:10 | DIAGNOSTIC IMAGING REPORT ---
CHEST 2 VIEWS ROUTINE CLINICAL HISTORY: 67 years-old Female presenting with R05 [id number]. TECHNIQUE: PA and lateral views of the chest were obtained. COMPARISON: 02/08/2016. FINDINGS: Right subclavian Mediport terminates in the mid SVC. Surgical clips noted in the right axilla. Cardiomediastinal silhouette normal. Additional surgical clips project over the left lung base likely within the left breast. Lungs and pleural spaces clear. Degenerative changes of the thoracic spine. Upper abdomen normal. IMPRESSION: 1. No acute cardiopulmonary disease. Electronically signed by: Jatin Adrian M.D. 11/29/2017 3:09 PM Dictated Date/Time: 11/29/2017 3:07 PM
== END | disposition home or self-care (01) ==
LOC: C.RADBC 14:53
PROVIDERS: ATTEND Physician Assistant
DX: R05 Cough (principal)

== ENCOUNTER 2021-11-30 18:53 | Inpatient (IN) ==
[2021-11-30 20:02] LABS: Hematocrit (blood only) 34.3 % (34.1-44.9); Hemoglobin 11.5 g/dl (12.0-16.0); Mean Corpuscular Hemoglobin 29.6 pg (25.0-34.0); Mean Corpuscular Hgb Conc 33.5 g/dL (32.0-36.0); Mean Corpuscular Volume 88.4 fL (80.0-100.0); Mean Platelet Volume 8.9 fL (9.4-12.3); Platelet Count 283 K/uL (130-400); RDW Coefficient of Variation 13.1 % (11.5-14.5); Red Blood Count 3.88 M/uL (3.93-5.22); White Blood Count 1.43 K/ul (4.8-10.8)
[2021-11-30 20:24] LABS: Alanine Aminotransferase 21 U/L (7-52); Albumin Globulin Ratio 1.3 (0.9-2); Albumin Level 3.5 gm/dl (3.4-5.0); Alkaline Phosphatase 64 U/L (34-104); Anion Gap 8 (3-11); Aspartate Aminotransferase 17 U/L (13-39); BUN Creatinine Ratio 19.4 (10-20); Bilirubin,Total 0.5 mg/dl (0.2-1.0); Blood Urea Nitrogen 12 mg/dl (6-23); Calcium 8.6 mg/dl (8.5-10.1); Carbon Dioxide 24 mmol/L (21-32); Chloride 104 mmol/L (98-107); Est GFR (African American) 105.1 ml/min; Est GFR (Non-African American) 90.7 ml/min; Globulin 2.8 gm/dl (2.5-4.0); Glucose 120 mg/dl (70-99(Fasting)); Potassium 4.1 mmol/L (3.5-5.1); Sodium 136 mmol/L (136-145); Total Protein 6.3 gm/dl (6.0-8.3)
[2021-11-30 20:26] LABS: Basophils # (auto) 0.01 K/uL (0-0.2); Basophils % (auto) 0.7 %; Immature Granulocytes # (auto) 0.01 K/uL (0.00-0.02); Immature Granulocytes % (auto) 0.7 %; Lymphocytes # (auto) 0.93 K/uL (1.2-3.4); Monocytes # (auto) 0.46 K/uL (0.24-0.82); Monocytes % (auto) 32.2 %; Neutrophils % (auto) 1.4 %; Polychromasia 1+; Tear Drop Cells 1+
--- NOTE | 2021-11-30 20:51 | XRay Report ---
SINGLE VIEW CHEST CLINICAL HISTORY: Illness. FINDINGS: An AP, portable, upright chest radiograph is compared to study dated 09/28/2019 and correlat ed with chest CT dated 10/31/2021. The examination is degraded by portable technique and patient rotat ion. A left subclavian central venous infusion port is unchanged in position. The cardiomediastinal s ilhouette is unremarkable noting atherosclerotic calcification of the thoracic aorta. There is elevat ion of the right hemidiaphragm with mild bibasilar atelectasis. The lungs and pleural spaces are othe rwise clear. No pneumothorax is seen. The skeletal structures are osteopenic. The bony thorax is layo sly intact. Surgical clips are noted in the right axilla. Surgical clips also project over the left b reast. IMPRESSION: No active disease in the chest. ACT 112: Negative or not required by law. Electronically signed by: Abran Amezcua M.D. 11/30/2021 8:49 PM
[2021-11-30 21:07] LABS: INR 1.2 (0.9-1.1); Partial Thromboplastin Ratio 1.2; Partial Thromboplastin Time 32.4 Seconds (21.0-31.0); Prothrombin Time 13.1 Seconds (9.0-12.0)
--- NOTE | 2021-11-30 21:08 | CT Scan Report ---
CT SCAN OF THE BRAIN WITHOUT IV CONTRAST CLINICAL HISTORY: Change in mental status. Metastatic breast cancer. COMPARISON STUDY: MRI of the brain dated 11/14/2021. TECHNIQUE: Unenhanced axial CT scan of the brain is performed from the vertex to the skull base. A do se lowering technique was utilized adhering to the principles of ALARA. CT DOSE: 614.27 mGy.cm FINDINGS: Brain parenchyma: There is age-related involutional change. Advanced confluent white matter abnormali ty is likely related to radiation treatment. There is no hemorrhage, mass effect, or evidence of acut e territorial ischemia by CT criteria. Nuñez-white matter differentiation is preserved. No extra-axial fluid collection is seen. Ventricles, sulci, cisterns: Prominent secondary to involutional change. Intracranial vasculature: There is atherosclerotic calcification of the cavernous carotid arteries. Calvarium: Unremarkable. Sinuses and mastoids: The visualized paranasal sinuses are clear. The mastoid air cells are well pneu matized. Orbits: The bony orbits are grossly intact. There is a left ocular lens implant. IMPRESSION: 1. There is no hemorrhage, mass effect, or evidence of acute territorial ischemia by CT criteria. 2. Advanced confluent white matter abnormality is likely related to previous radiation treatment. 3. Numerous small intracranial metastatic lesions seen by MRI cannot be the visualized by CT. ACT 112: Negative or not required by law. Electronically signed by: Abran Amezcua M.D. 11/30/2021 9:06 PM
[2021-11-30] MEDS ORDERED: SODIUM CHLORIDE 0.9% 1000ML 500 ML IV ONE (21:15)
[2021-11-30] MEDS ORDERED: SODIUM CHLORIDE 0.9% 1000ML 1,000 ML IV STA (21:15)
--- NOTE | 2021-11-30 23:33 | History & Physical Report ---
Date of Service November 30, 2021 Assessment & Plan (1) Breast cancer metastasized to brain: Plan: MRI of brain will be repeated Edema noted on previous exam Give dexamethasone 10 mg IV now then 6 mg IV every 8 hours Consult oncology (2) Urge and stress incontinence: Plan: Hold medications for now (3) Insomnia: Plan: Hold medications (4) Weakness: Plan: PT/OT can be consulted at some point LR at 100 mils per hour (5) Neutropenia: Plan: ANC 0.02 Give Neupogen 480 mcg subcu Follow laboratory serially For now placed on vancomycin IV and cefepime IV empirically in the event there is an occult infection contributing to patient's symptomatology History of Present Illness Chief Complaint: The patient was brought to the emergency department by her , reporting that she was getting progressively more weak, confused, and he was unable to take care of her at home. Primary Care Provider: Jatin Simon MD The patient is a 71-year-old female with a past medical history including metastatic breast cancer to brain, insomnia, urge and stress urinary incontinence, and GERD. She is brought to the emergency department with report as noted by above. The patient is not able to contribute significantly to her HPI or review of systems because of these underlying medical problems Allergies Allergy/AdvReac Type Severity Reaction Status Date / Time No Known Allergies Allergy Verified 11/30/21 23:24 Home Medications Medication Instructions Recorded Confirmed Type ondansetron HCl 8 mg tablet 8 mg PO Q8H PRN Nausea 11/04/19 11/30/21 History (Zofran) trazodone 50 mg tablet 100 mg PO HS PRN insomnia #180 tabs 10/19/20 11/30/21 Rx calcium carbonate 600 mg-vitamin 1 tab PO DAILY 04/20/21 11/30/21 History D3 20 mcg (800 unit) tablet (Caltrate with Vitamin D3) anastrozole 1 mg tablet (Arimidex) 1 mg PO DAILY #30 tabs 09/12/21 11/30/21 Rx oxybutynin chloride 10 mg See Rx Instructions .Route 09/12/21 11/30/21 Rx tablet,extended release 24 hr .COMPLEX #90 tabs megestrol 40 mg tablet 40 mg PO DAILY 11/16/21 11/30/21 History memantine 5 mg-10 mg tablets in a See Rx Instructions .Route 11/22/21 11/30/21 Rx dose pack (Zoey Douglass) .COMPLEX #49 ea dexamethasone 4 mg tablet 4 mg PO DIRECTED 11/30/21 11/30/21 History pantoprazole 40 mg tablet,delayed 40 mg PO DAILY 11/30/21 11/30/21 History release potassium chloride 10 mEq 10 meq PO DAILY 11/30/21 11/30/21 History tablet,extended release Past Med/Surg History Medical History Brain metastases Breast cancer Breast cancer metastasized to brain Chronic cough Chronic insomnia Cough Insomnia Low back pain Metastasis from breast cancer Metastatic breast cancer Osteoarthritis Trapezius muscle spasm Urge and stress incontinence Vitamin D insufficiency Surgical History History of bunionectomy History of colonoscopy History of removal of Port-a-Cath (02/03/19) History of vascular access device Hx of partial mastectomy Port-A-Cath in place (09/28/19) Retinal detachment Family History Father Rheumatoid arthritis Prostate cancer Valvular heart disease Cardiac disorder Rheumatic fever Mother Hyperlipidemia Hypertension Brother Stroke syndrome Other No family history of adverse response to anesthesia Social History Smoking Status: Never smoker Second Hand Exposure: No; Hx Alcohol Use: No Hx Substance Use: No Preferred Language: [place] Communication Ability: Effective Communication Ability Comment: Patient has delayed responses and at times does not respond at all Visual Impairment: Limited Hearing Ability: Normal Assistant [employer] Counsel Required: No Beliefs That Will Affect Care: None marital status: Current Living Situation: Spouse current occupational status: retired Feels Safe at Home: Yes Childhood Exposure to Second-Hand Smoke: No caffeine: No Dental Care, Regularly: Yes Physical Activity Frequency: 3-4 Times per Week Seatbelt Use: always Sunscreen Use: Yes Assistive Devices: Glasses and Walker Review of Systems Review of Systems: Review of systems limited as noted Physical Exam Physical Exam: The patient is awake, unable to communicate, well developed and well nourished, normocephalic and atraumatic, lying in bed and in no acute distress. HEENT--PERRL, EOMI, mucous membranes and oropharynx normal. Neck--supple. No JVD. No bruits. Thyroid normal, trachea midline, no adenopathy. Heart--normal S1 and S2. No murmurs, rubs or gallops. Lungs--clear bilaterally, no respiratory distress, no accessory muscle use. Abdomen--normal bowel sounds and soft. Nontender. Nondistended, no hernias or masses, no organomegaly. Extremities--no cyanosis or clubbing. No edema. Dermatologic--normal skin turgor, normal color, no abnormal lymph nodes, no rash. Neurologic--cranial nerves II through XII grossly intact. Rheumatologic--limited exam Psychiatric-unresponsive Results & Data Results & Data ([facility]) Vital Signs (Past 12 Hours) Vital Signs Temp Pulse Resp BP Pulse Ox 11/30/21 19:03 36.5 C 91 H 18 122/78 98 Laboratory Results Laboratory Results WBC 1.43 K/ul (4.8-10.8) L 11/30/21 19:48 RBC 3.88 M/uL (3.93-5.22) L 11/30/21 19:48 Hgb 11.5 g/dl (12.0-16.0) L 11/30/21 19:48 Hct 34.3 % (34.1-44.9) 11/30/21 19:48 MCV 88.4 fL (80.0-100.0) 11/30/21 19:48 MCH 29.6 pg (25.0-34.0) 11/30/21 19:48 MCHC 33.5 g/dL (32.0-36.0) 11/30/21 19:48 RDW Std Deviation 42.0 fL (36.4-46.3) 11/30/21 19:48 RDW Coeff of Cristian 13.1 % (11.5-14.5) 11/30/21 19:48 Plt Count 283 K/uL (130-400) 11/30/21 19:48 MPV 8.9 fL (9.4-12.3) L 11/30/21 19:48 Immature Gran % (Auto) 0.7 % 11/30/21 19:48 Neut % (Auto) 1.4 % 11/30/21 19:48 Lymph % (Auto) 65.0 % 11/30/21 19:48 Petroleum % (Auto) 32.2 % 11/30/21 19:48 Eos % (Auto) 0.0 % 11/30/21 19:48 Baso % (Auto) 0.7 % 11/30/21 19:48 Neut # (Auto) 0.02 K/uL (1.4-6.5) L* 11/30/21 19:48 Lymph # (Auto) 0.93 K/uL (1.2-3.4) L 11/30/21 19:48 Petroleum # (Auto) 0.46 K/uL (0.24-0.82) 11/30/21 19:48 Eos # (Auto) 0.00 K/uL (0-0.50) 11/30/21 19:48 Baso # (Auto) 0.01 K/uL (0-0.2) 11/30/21 19:48 Immature Gran # (Auto) 0.01 K/uL (0.00-0.02) 11/30/21 19:48 Polychromasia 1+ 11/30/21 19:48 Tear Drop Cells 1+ 11/30/21 19:48 PT 13.1 Seconds (9.0-12.0) H 11/30/21 20:38 INR 1.2 (0.9-1.1) H 11/30/21 20:38 APTT 32.4 Seconds (21.0-31.0) H 11/30/21 20:38 PTT Ratio 1.2 11/30/21 20:38 Sodium 136 mmol/L (136-145) 11/30/21 19:48 Potassium 4.1 mmol/L (3.5-5.1) 11/30/21 19:48 Chloride 104 mmol/L (98-107) 11/30/21 19:48 Carbon Dioxide 24 mmol/L (21-32) 11/30/21 19:48 Anion Gap 8 (3-11) 11/30/21 19:48 BUN 12 mg/dl (6-23) 11/30/21 19:48 Creatinine 0.62 mg/dl (0.6-1.2) 11/30/21 19:48 Est Cr Clr Drug Dosing Not Reportable 11/30/21 19:48 Est GFR ( Amer) 105.1 ml/min 11/30/21 19:48 Est GFR (Non-Af Amer) 90.7 ml/min 11/30/21 19:48 BUN/Creatinine Ratio 19.4 (10-20) 11/30/21 19:48 Glucose 120 mg/dl (70-99(Fasting)) H 11/30/21 19:48 Calcium 8.6 mg/dl (8.5-10.1) 11/30/21 19:48 Total Bilirubin 0.5 mg/dl (0.2-1.0) 11/30/21 19:48 AST 17 U/L (13-39) 11/30/21 19:48 ALT 21 U/L (7-52) 11/30/21 19:48 Alkaline Phosphatase 64 U/L (34-104) 11/30/21 19:48 Total Protein 6.3 gm/dl (6.0-8.3) 11/30/21 19:48 Albumin 3.5 gm/dl (3.4-5.0) 11/30/21 19:48 Globulin 2.8 gm/dl (2.5-4.0) 11/30/21 19:48 Albumin/Globulin Ratio 1.3 (0.9-2) 11/30/21 19:48 SARS-CoV-2, RNA, NAAT NEGATIVE (NEGATIVE) 11/30/21 20:30 Impressions Chest X-Ray 11/30/21 19:11 SINGLE VIEW CHEST CLINICAL HISTORY: Illness. FINDINGS: An AP, portable, upright chest radiograph is compared to study dated 09/28/2019 and correlated with chest CT dated 10/31/2021. The examination is degraded by portable technique and patient rotation. A left subclavian central venous infusion port is unchanged in position. The cardiomediastinal silhouette is unremarkable noting atherosclerotic calcification of the thoracic aorta. There is elevation of the right hemidiaphragm with mild bibasilar atelectasis. The lungs and pleural spaces are otherwise clear. No pneumothorax is seen. The skeletal structures are osteopenic. The bony thorax is grossly intact. Surgical clips are noted in the right axilla. Surgical clips also project over the left breast. IMPRESSION: No active disease in the chest. ACT 112: Negative or not required by law. Electronically signed by: Abran Amezcua M.D. 11/30/2021 8:[address] 11/30/21 20:21 CT SCAN OF THE BRAIN WITHOUT IV CONTRAST CLINICAL HISTORY: Change in mental status. Metastatic breast cancer. COMPARISON STUDY: MRI of the brain dated 11/14/2021. TECHNIQUE: Unenhanced axial CT scan of the brain is performed from the vertex to the skull base. A dose lowering technique was utilized adhering to the principles of ALARA. CT DOSE: 614.27 mGy.cm FINDINGS: Brain parenchyma: There is age-related involutional change. Advanced confluent white matter abnormality is likely related to radiation treatment. There is no hemorrhage, mass effect, or evidence of acute territorial ischemia by CT criteria. Nuñez-white matter differentiation is preserved. No extra-axial fluid collection is seen. Ventricles, sulci, cisterns: Prominent secondary to involutional change. Intracranial vasculature: There is atherosclerotic calcification of the cavernous carotid arteries. Calvarium: Unremarkable. Sinuses and mastoids: The visualized paranasal sinuses are clear. The mastoid air cells are well pneumatized. Orbits: The bony orbits are grossly intact. There is a left ocular lens implant. IMPRESSION: 1. There is no hemorrhage, mass effect, or evidence of acute territorial ischemia by CT criteria. 2. Advanced confluent white matter abnormality is likely related to previous radiation treatment. 3. Numerous small intracranial metastatic lesions seen by MRI cannot be the visualized by CT. ACT 112: Negative or not required by law. Electronically signed by: Abran Amezcua M.D. 11/30/2021 9:06 PM Code Status & VTE Plan Code Status Full code VTE Prophylaxis Plan VTE Prophylaxis will be ordered: Yes PG Care Time/CCT Total # of Minutes Spent Total Time Spent with Patient: Total time spent is greater than 50% in coordination of care (as documented) at patient's floor/unit and/or counseling patient: Coding Level of Care Code 92036 Initial Inpt Care Lvl 2 Diagnoses Breast cancer metastasized to brain C50.919; C79.31 Urge and stress incontinence N39.46 Insomnia G47.00 Weakness R53.1 Neutropenia D70.9
[2021-11-30] MEDS ORDERED: FILGRASTIM 480 MCG/1.6 ML VIAL SC ONE (23:34)
[2021-11-30] MEDS ORDERED: VANCOMYCIN CONSULT ACTIVE PRN (23:53)
[2021-12-01] MEDS ORDERED: dexAMETHasone 10 MG in SYRINGE 0 ML IV ONE
[2021-12-01] MEDS ORDERED: GADOBUTROL 65ML VIAL IV ONE (00:43)
[2021-12-01] MEDS ORDERED: Patient's HEIGHT &/or WEIGHT Needed SCH (00:45)
--- NOTE | 2021-12-01 01:02 | Emergency Department Note ---
Impression & Plan Weakness, Neutropenia, Metastatic breast cancer ED Provider Note INFORMANT: Patient and ED PROVIDER(S): Naeem Ayala MD CHIEF COMPLAINT: Weakness PLAN: Disposition: Admitted Condition: Good Outpatient prescription management: none Referral: None MEDICAL DECISION MAKING: Patient presented because of feeling generally weak. A work-up was initiated. Her CBC and chemistry panel revealed a significant neutropenia and leukopenia. ECG was normal. Chest x-ray was negative. CT scan of the head did not show any acute pathology. Chronic findings noted. Urinalysis was pending. Patient was hydrated. COVID testing performed and negative. She will need further management in the hospital as she is not doing well at home. I think it is a combination of her disease as well as her chemotherapy. was very much in agreement. Consultation was made with Dr. Ritesh Hood of the [facility] service. Patient was evaluated in the ER for further manag ement. Triage Nursing notes reviewed and agree them. Vital Signs: reviewed and remarkable for no significant abnormalities Differential diagnosis: Infection, dehydration, metabolic abnormality, hypo/hyperglycemia, electrolyte disturbance, anemia, hypoxia, cardiac sources, intracerebral event, toxicologic, neurologic, as well as other pathologies. Diagnostics interpreted by me: EC Lead ECG performed and revealed Normal sinus rhythm at 91, normal [place], QRS normal. No elevation or depression. No PACs or PVCs Cardiac Monitoring: Cardiac monitoring ordered by me: The patient was placed on continuous cardiac monitoring and observed. It revealed a normal sinus rhythm at 80 beats per minute without ectopy or evidence of dysrhythmia. Imaging studies: Head CT: A noncontrast CT scan of the head was performed and was negative for tumor, fracture, intracranial hemorrhage, or other acute pathology. Chest x-ray. Findings: A chest x-ray was performed and revealed no pneumothorax, effusion, infiltrate, pulmonary edema, free air under the diaphragm, or wide mediastinum. Impression: No acute disease. HPI: The patient is a 71year old female who presents to the Emergency Room with complaints of weakness. This started over the last week and is worsening. states that she is having difficulty at home. He notes that she received chemotherapy for her breast cancer that has metastasized. She has been having difficulty eating and drinking. She is generally weak. The patient has found no relieving factors. Current pain is rated as 0/10. Pt denies LOC, headache, fevers, chills, diaphoresis, visual changes, neck pain, chest pain, breathing difficulties, nausea, vomiting, abdominal pain, back pain, melena, hematochezia, urinary symptoms, numbness, lymphadenopathy, rash, or other complaints. ROS: See above HPI for pertinent positives & negatives. A total of 10 systems reviewed and were otherwise negative. PAST MEDICAL HISTORY:See Below , metastatic breast cancer PAST SURGICAL HISTORY:See Below, Mediport FAMILY HISTORY:See Below SOCIAL HISTORY:See Below, HOME MEDICATIONS:See Below ALLERGIES:See Below VITALS:See Below PHYSICAL EXAMINATION: GENERAL: Awake, tired-appearing, in no distress HENT: Normocephalic, atraumatic. Oropharynx unremarkable. EYES: Normal conjunctiva. Sclera non-icteric. NECK: Inspection normal. Non-tender. Supple. No nuchal rigidity. FROM. No masses. RESPIRATORY: Clear to auscultation. No wheezes. No rales. Normal respiratory effort. CARDIAC: Normal rate. Normal rhythm. No murmurs. No rubs. Extremities warm and well perfused. Pulses equal. No JVD. GI: Soft, non-distended. No tenderness to palpation. No rebound or guarding. No masses. RECTAL: Deferred. MUSCULOSKELETAL: Atraumatic. Generalized muscular atrophy. Chest examination reveals no tenderness. The back is symmetrical on inspection without obvious abnormality. There is no CVA tenderness to palpation. No joint edema. LOWER EXTREMITIES: Calves are equal size bilaterally and non-tender. No edema. No discoloration. NEURO: Normal sensorium. No sensory or motor deficits noted. SKIN: No rash or jaundice noted. Mild erythema noted to the upper chest but no signs of cellulitis. Nontender. Naeem Ayala MD Past Med/Surg History Medical History Brain metastases Breast cancer Breast cancer metastasized to brain Chronic cough Chronic insomnia Cough Insomnia Low back pain Metastasis from breast cancer Metastatic breast cancer Osteoarthritis Trapezius muscle spasm Urge and stress incontinence Vitamin D insufficiency Surgical History History of bunionectomy History of colonoscopy History of removal of Port-a-Cath (02/03/19) History of vascular access device Hx of partial mastectomy Port-A-Cath in place (09/28/19) Retinal detachment Family History Father Rheumatoid arthritis Prostate cancer Valvular heart disease Cardiac disorder Rheumatic fever Mother Hyperlipidemia Hypertension Brother Stroke syndrome Other No family history of adverse response to anesthesia Social History Smoking Status: Never smoker Second Hand Exposure: No; Hx Alcohol Use: Yes Alcohol type: wine and other Hx Substance Use: No Preferred Language: Malaysian Communication Ability: Effective Visual Impairment: Limited Hearing Ability: Normal Department Director Required: No Beliefs That Will Affect Care: None marital status: Current Living Situation: Spouse current occupational status: retired Feels Safe at Home: Yes Childhood Exposure to Second-Hand Smoke: No caffeine: No Dental Care, Regularly: Yes Physical Activity Frequency: 3-4 Times per Week Seatbelt Use: always Sunscreen Use: Yes Assistive Devices: Contacts Allergies Allergies Allergy/AdvReac Type Severity Reaction Status Date / Time No Known Allergies Allergy Verified 11/30/21 23:24 Home Meds Home Medications Medication Instructions Recorded Confirmed ondansetron HCl 8 mg tablet 8 mg PO Q8H PRN Nausea 11/04/19 11/30/21 (Zofran) calcium carbonate 600 mg-vitamin 1 tab PO DAILY 04/20/21 11/30/21 D3 20 mcg (800 unit) tablet (Caltrate with Vitamin D3) megestrol 40 mg tablet 40 mg PO DAILY 11/16/21 11/30/21 dexamethasone 4 mg tablet 4 mg PO DIRECTED 11/30/21 11/30/21 pantoprazole 40 mg tablet,delayed 40 mg PO DAILY 11/30/21 11/30/21 release potassium chloride 10 mEq 10 meq PO DAILY 11/30/21 11/30/21 tablet,extended release Previous Rx's Medication Instructions Recorded trazodone 50 mg tablet 100 mg PO HS PRN insomnia #180 tabs 10/19/20 anastrozole 1 mg tablet (Arimidex) 1 mg PO DAILY #30 tabs 09/12/21 oxybutynin chloride 10 mg See Rx Instructions .Route 09/12/21 tablet,extended release 24 hr .COMPLEX #90 tabs memantine 5 mg-10 mg tablets in a See Rx Instructions .Route 11/22/21 dose pack (Namendtori Atkinson Rafat) .COMPLEX #49 ea Results & Data (ED) Vital Signs Vital Signs - 24 hr 11/30/21 19:03 11/30/21 22:54 12/01/21 00:00 Temperature 36.5 C Temperature Source Temporal Artery Scan Pulse Rate 91 H Pulse Rate from SpO2 Sensor Respiratory Rate 18 Respiratory Effort / Characteristics Non-Labored Spontaneous Non-Labored Respiratory Depth Normal Normal Respiratory Pattern Regular Blood Pressure 122/78 Blood Pressure [Right Arm] 118/77 Blood Pressure Mean 92 Blood Pressure Mean [Right Arm] 90 Blood Pressure Position Sitting Pulse Oximetry 98 Sepsis Recent Fever Within 48 Hours No Sepsis New/Unexplained Change in Mental Status N/A Sepsis Action Taken by Nursing No Action Required 11/30/21 22:26 11/30/21 22:30 11/30/21 22:40 Temperature Temperature Source Pulse Rate Pulse Rate from SpO2 Sensor 100 H 102 H 105 H Respiratory Rate Respiratory Effort / Characteristics Respiratory Depth Respiratory Pattern Blood Pressure Blood Pressure [Right Arm] Blood Pressure Mean Blood Pressure Mean [Right Arm] Blood Pressure Position Pulse Oximetry 98 97 99 Sepsis Recent Fever Within 48 Hours Sepsis New/Unexplained Change in Mental Status Sepsis Action Taken by Nursing 11/30/21 22:50 Temperature Temperature Source Pulse Rate Pulse Rate from SpO2 Sensor 103 H Respiratory Rate Respiratory Effort / Characteristics Respiratory Depth Respiratory Pattern Blood Pressure Blood Pressure [Right Arm] Blood Pressure Mean Blood Pressure Mean [Right Arm] Blood Pressure Position Pulse Oximetry 98 Sepsis Recent Fever Within 48 Hours Sepsis New/Unexplained Change in Mental Status Sepsis Action Taken by Nursing Laboratory Data Result diagrams: 11/30/21 19:48 11/30/21 19:48 Lab Results 11/30/21 11/30/21 11/30/21 Range/Units 19:48 19:48 19:48 WBC 1.43 L (4.8-10.8) K/ul RBC 3.88 L (3.93-5.22) M/uL Hgb 11.5 L (12.0-16.0) g/dl Hct 34.3 (34.1-44.9) % MCV 88.4 (80.0-100.0) fL MCH 29.6 (25.0-34.0) pg MCHC 33.5 (32.0-36.0) g/dL RDW Std Deviation 42.0 (36.4-46.3) fL RDW Coeff of Cristian 13.1 (11.5-14.5) % Plt Count 283 (130-400) K/uL MPV 8.9 L (9.4-12.3) fL Immature Gran % (Auto) 0.7 % Neut % (Auto) 1.4 % Lymph % (Auto) 65.0 % Ogle % (Auto) 32.2 % Eos % (Auto) 0.0 % Baso % (Auto) 0.7 % Neut # (Auto) 0.02 L* (1.4-6.5) K/uL Lymph # (Auto) 0.93 L (1.2-3.4) K/uL Ogle # (Auto) 0.46 (0.24-0.82) K/uL Eos # (Auto) 0.00 (0-0.50) K/uL Baso # (Auto) 0.01 (0-0.2) K/uL Immature Gran # (Auto) 0.01 (0.00-0.02) K/uL Polychromasia 1+ Tear Drop Cells 1+ PT Cancelled INR Cancelled APTT Cancelled PTT Ratio Cancelled Sodium 136 (136-145) mmol/L Potassium 4.1 (3.5-5.1) mmol/L Chloride 104 (98-107) mmol/L Carbon Dioxide 24 (21-32) mmol/L Anion Gap 8 (3-11) BUN 12 (6-23) mg/dl Creatinine 0.62 (0.6-1.2) mg/dl Est Cr Clr Drug Dosing Not Reportable Est GFR ( Amer) 105.1 ml/min Est GFR (Non-Af Amer) 90.7 ml/min BUN/Creatinine Ratio 19.4 (10-20) Glucose 120 H (70-99(Fasting)) mg/dl Calcium 8.6 (8.5-10.1) mg/dl Total Bilirubin 0.5 (0.2-1.0) mg/dl AST 17 (13-39) U/L ALT 21 (7-52) U/L Alkaline Phosphatase 64 (34-104) U/L Total Protein 6.3 (6.0-8.3) gm/dl Albumin 3.5 (3.4-5.0) gm/dl Globulin 2.8 (2.5-4.0) gm/dl Albumin/Globulin Ratio 1.3 (0.9-2) SARS-CoV-2, RNA, NAAT (NEGATIVE) 11/30/21 11/30/21 Range/Units 20:30 20:38 WBC (4.8-10.8) K/ul RBC (3.93-5.22) M/uL Hgb (12.0-16.0) g/dl Hct (34.1-44.9) % MCV (80.0-100.0) fL MCH (25.0-34.0) pg MCHC (32.0-36.0) g/dL RDW Std Deviation (36.4-46.3) fL RDW Coeff of Cristian (11.5-14.5) % Plt Count (130-400) K/uL MPV (9.4-12.3) fL Immature Gran % (Auto) % Neut % (Auto) % Lymph % (Auto) % Ogle % (Auto) % Eos % (Auto) % Baso % (Auto) % Neut # (Auto) (1.4-6.5) K/uL Lymph # (Auto) (1.2-3.4) K/uL Ogle # (Auto) (0.24-0.82) K/uL Eos # (Auto) (0-0.50) K/uL Baso # (Auto) (0-0.2) K/uL Immature Gran # (Auto) (0.00-0.02) K/uL Polychromasia Tear Drop Cells PT 13.1 H INR 1.2 H APTT 32.4 H PTT Ratio 1.2 Sodium (136-145) mmol/L Potassium (3.5-5.1) mmol/L Chloride (98-107) mmol/L Carbon Dioxide (21-32) mmol/L Anion Gap (3-11) BUN (6-23) mg/dl Creatinine (0.6-1.2) mg/dl Est Cr Clr Drug Dosing Est GFR ( Amer) ml/min Est GFR (Non-Af Amer) ml/min BUN/Creatinine Ratio (10-20) Glucose (70-99(Fasting)) mg/dl Calcium (8.5-10.1) mg/dl Total Bilirubin (0.2-1.0) mg/dl AST (13-39) U/L ALT (7-52) U/L Alkaline Phosphatase (34-104) U/L Total Protein (6.0-8.3) gm/dl Albumin (3.4-5.0) gm/dl Globulin (2.5-4.0) gm/dl Albumin/Globulin Ratio (0.9-2) SARS-CoV-2, RNA, NAAT NEGATIVE (NEGATIVE) Administered Medications Sodium Chloride (Nss 1000ml) 1,000 mls @ 125 mls/hr IV .Q8H STA Stop: 12/01/21 05:14 Last Admin: 11/30/21 22:31 Dose: 125 mls/hr Documented By: SHAHID Discontinued Medications Gadobutrol (Gadobutrol 65ml Vial) 5 ml IV ONCE ONE Stop: 12/01/21 00:44 Last Admin: 12/01/21 00:44 Dose: 5 ml Documented By: COBY Sodium Chloride (Nss 1000ml) 500 mls @ 999 mls/hr IV .Q31M ONE Stop: 11/30/21 21:45 Last Infusion: 11/30/21 22:31 Dose: 0 mls/hr Documented By: Admin: 11/30/21 21:28 Dose: 999 mls/hr Documented By: SHAHID Imaging Data Radiologist's Impression: Chest X-Ray 11/30/21 19:11 SINGLE VIEW CHEST CLINICAL HISTORY: Illness. FINDINGS: An AP, portable, upright chest radiograph is compared to study dated 09/28/2019 and correlated with chest CT dated 10/31/2021. The examination is degraded by portable technique and patient rotation. A left subclavian central venous infusion port is unchanged in position. The cardiomediastinal silhouette is unremarkable noting atherosclerotic calcification of the thoracic aorta. There is elevation of the right hemidiaphragm with mild bibasilar atelectasis. The lungs and pleural spaces are otherwise clear. No pneumothorax is seen. The skeletal structures are osteopenic. The bony thorax is grossly intact. Surgical clips are noted in the right axilla. Surgical clips also project over the left breast. IMPRESSION: No active disease in the chest. ACT 112: Negative or not required by law. Electronically signed by: Abran Amezcua M.D. 11/30/2021 8:[address] 11/30/21 20:21 CT SCAN OF THE BRAIN WITHOUT IV CONTRAST CLINICAL HISTORY: Change in mental status. Metastatic breast cancer. COMPARISON STUDY: MRI of the brain dated 11/14/2021. TECHNIQUE: Unenhanced axial CT scan of the brain is performed from the vertex to the skull base. A dose lowering technique was utilized adhering to the principles of ALARA. CT DOSE: 614.27 mGy.cm FINDINGS: Brain parenchyma: There is age-related involutional change. Advanced confluent white matter abnormality is likely related to radiation treatment. There is no hemorrhage, mass effect, or evidence of acute territorial ischemia by CT criteria. Nuñez-white matter differentiation is preserved. No extra-axial fluid collection is seen. Ventricles, sulci, cisterns: Prominent secondary to involutional change. Intracranial vasculature: There is atherosclerotic calcification of the cavernous carotid arteries. Calvarium: Unremarkable. Sinuses and mastoids: The visualized paranasal sinuses are clear. The mastoid air cells are well pneumatized. Orbits: The bony orbits are grossly intact. There is a left ocular lens implant. IMPRESSION: 1. There is no hemorrhage, mass effect, or evidence of acute territorial ischemia by CT criteria. 2. Advanced confluent white matter abnormality is likely related to previous radiation treatment. 3. Numerous small intracranial metastatic lesions seen by MRI cannot be the visualized by CT. ACT 112: Negative or not required by law. Electronically signed by: Abran Amezcua M.D. 11/30/2021 9:06 PM Discharge Plan Visit Data Chief Complaint: Illness Stated Complaint: CHEMO, ALLERGIC REACTION ED Provider: Naeem Ayala Discharge Problem: Weakness, Neutropenia, Metastatic breast cancer Forms Stand Alone Forms: My [facility] [employer] Prescriptions Prescriptions: No Action ondansetron HCl [Zofran] 8 mg tablet 8 mg PO Q8H PRN (Reason: Nausea) calcium carbonate-vitamin D3 [Caltrate with Vitamin D3] 600 mg-20 mcg (800 unit) tablet 1 tab PO DAILY megestrol 40 mg tablet 40 mg PO DAILY Rx Instructions: per trazodone 50 mg tablet 100 mg PO HS PRN (Reason: insomnia) Qty: 180 3RF memantine [Namenda Titration Rafat] 5-10 mg tablets,dose pack See Rx Instructions .ROUTE .COMPLEX Qty: 49 0RF Rx Instructions: as directed; oxybutynin chloride 10 mg tablet extended release 24 hr See Rx Instructions .ROUTE .COMPLEX Qty: 90 3RF Dose Instruction: TAKE 1 TABLET BY MOUTH EVERY DAY Rx Instructions: TAKE 1 TABLET BY MOUTH EVERY DAY anastrozole [Arimidex] 1 mg tablet 1 mg PO DAILY Qty: 30 2RF potassium chloride 10 mEq tablet extended release 10 meq PO DAILY pantoprazole 40 mg tablet,delayed release (DR/EC) 40 mg PO DAILY dexamethasone 4 mg tablet 4 mg PO DIRECTED Rx Instructions: Take 1 pill daily other than the days that you take the pre - post treatment for chemotherapy. Referrals Referrals: Jatin Simon MD [Primary Care Provider] -
[2021-12-01] MEDS ORDERED: ACETAMINOPHEN 325 MG TAB PO PRN (01:14)
[2021-12-01] MEDS ORDERED: ONDANSETRON INJ 2 MG/ML 2 ML VIAL IV PRN (01:14)
[2021-12-01] MEDS: LACTATED RINGER'S 1,000 ML IV SCH ×3 (01:36→21:20)
[2021-12-01] MEDS: CEFEPIME 2,000 MG in SYRINGE 0 ML IV SCH ×2 (01:54→15:18)
[2021-12-01] MEDS ORDERED: VANCOMYCIN HCL 1,250 MG in SODIUM CHLORIDE 0.9% 250 ML IV ONE (02:00)
--- NOTE | 2021-12-01 02:52 | Pharmacy Report ---
Pharmacy PK ABX Note - Date of Service December 01, 2021 - Assessment and Plan Assessment 71 year old F receiving Vancomycin/Cefepime for empiric therapy. Plan Vancomycin * Loading dose: 1250mg (~23mg/kg) IV x 1 * Maintenance dose: 750mg (~14 mg/kg) IV every 12 hours * Regimen is predicted to achieve target AUC/BRISA of 400-600 mg/L.hr * Will check a trough level if vancomycin is continued. Pharmacy will continue to follow and will adjust dose/frequency as necessary. Thank you. Pharmacy has transitioned to AUC monitoring for vancomycin. AUC/BRISA is the preferred PK/PD target and is associated with decreased risk of nephrotoxicity compared to traditional trough targets.
[2021-12-01 07:38] LABS: Neutrophils # (auto) 0.02 K/uL (1.4-6.5)
[2021-12-01] MEDS: CALCIUM 600MG + VIT D 400 IU TAB PO SCH (08:12)
[2021-12-01] MEDS: MEGESTROL ACETATE 40 MG TAB PO SCH (08:12)
[2021-12-01] MEDS: ANASTROZOLE 1 MG TAB PO SCH (08:12)
[2021-12-01] MEDS: dexAMETHasone 6 MG in SYRINGE 0 ML IV SCH ×2 (08:15→17:15)
[2021-12-01 08:41] LABS: Appearance Urine Clear (Clear); Bilirubin Urine Negative (Negative); Blood Urine Negative (Negative); Color Urine Yellow; Glucose Urine UA Negative (Negative); Ketones Urine Trace (Negative); Leukocyte Esterase Urine Negative (Negative); Nitrite Urine Negative (Negative); Protein Urine Negative (Negative); Specific Gravity Urine 1.014 (1.000-1.030); Urobilinogen Urine Negative (Negative); pH Urine 6.5 (4.5-7.5)
[2021-12-01 08:57] LABS: Hematocrit (blood only) 31.5 % (34.1-44.9); Hemoglobin 10.6 g/dl (12.0-16.0); Mean Corpuscular Hemoglobin 29.8 pg (25.0-34.0); Mean Corpuscular Hgb Conc 33.7 g/dL (32.0-36.0); Mean Corpuscular Volume 88.5 fL (80.0-100.0); Mean Platelet Volume 8.8 fL (9.4-12.3); Nucleated RBC # (auto) 0.02 K/uL (0-0); Nucleated RBC % (auto) 1.7 %; Platelet Count 248 K/uL (130-400); RDW Standard Deviation 41.9 fL (36.4-46.3); Red Blood Count 3.56 M/uL (3.93-5.22); White Blood Count 1.21 K/ul (4.8-10.8)
[2021-12-01 09:02] LABS: Albumin Globulin Ratio 1.3 (0.9-2); Albumin Level 3.2 gm/dl (3.4-5.0); Bilirubin,Total 0.6 mg/dl (0.2-1.0); Calcium 7.9 mg/dl (8.5-10.1); Creatinine Clr Calc Pharmacy 76.4 ml/min; Est GFR (African American) 110.7 ml/min; Est GFR (Non-African American) 95.5 ml/min; Globulin 2.5 gm/dl (2.5-4.0); Magnesium 1.9 mg/dl (1.7-2.4); Potassium 3.8 mmol/L (3.5-5.1); Total Protein 5.7 gm/dl (6.0-8.3)
[2021-12-01 09:28] LABS: Lymphocytes # (auto) 0.59 K/uL (1.2-3.4); Lymphocytes % (auto) 48.8 %; Monocytes # (auto) 0.44 K/uL (0.24-0.82); Monocytes % (auto) 36.4 %; Neutrophils # (auto) 0.18 K/uL (1.4-6.5); Neutrophils % (auto) 14.8 %
--- NOTE | 2021-12-01 09:45 | Hospitalist Progress Note ---
Date of Service December 01, 2021 Assessment & Plan (1) Breast cancer metastasized to brain: Plan: Pal is a 71 year old female with history of breast cancer w/ mets to brain, insomnia, incontinence (urge/stress), and GERD who presents after 1 week of progressive weakness. Patient is admitted due to difficulty managing condition at home and for evaluation of potential cause. Metastatic Breast Cancer (w/ mets to brain) - Follows with Dr. Cotter and Dr. Adrian ([facility]) - Current Chemo Therapy: Docetaxel, Herceptin and Perjeta ([id number] x 6 cycles) - Begun 11/22 * Developed rash on neck shortly after chemotherapy + began feeling progressively weak shortly after * She is to take dexamethasone day before, day of, and day after chemotherapy - has Rx to take Dexamethasone 4 mg daily when not receiving chemo * Dexamethasone thought to be helpful for edema around her lesions and her feeling of imbalance * Pt. has a lesion in her brainstem - thought to be the cause of her imbalance - she is to receive stereotactic radiation - ED Course: * Patient presented because of feeling generally weak. * CBC and chemistry panel revealed a significant neutropenia (0.02) and leukopenia (1.43). * ECG was normal. Chest x-ray was negative. CT scan of the head did not show any acute pathology. Chronic findings noted. Urinalysis was pending. * Patient was hydrated.COVID testing performed and negative. * Initiated further management in the hospital as she is not doing well at home. - Brain MRI - Given dexamethasone 10 mg IV (now) and 6 mg IV q8h - Oncology consulted Weakness/Altered Mental Status - Likely 2/2 toxic delirium relative to chemotherapy, unlikely infectious origin - Consider PT/OT consultation if weakness persists - LR 100 ml/hr Neutropenia - ANC 0.02 11/30, ANC 0.18 12/01 - Received Neupogen 480 mcg 12/01 AM, scheduled to receive daily until ANC > 1000 (per oncologist) - Serial labs (CBC) - Discontinued Vancomycin and Cefepime IV empiric Urge/Stress Incontinence - Medication held Insomnia - Medication held (2) Weakness: (3) Urge and stress incontinence: (4) Insomnia: (5) Neutropenia: Plan FEN: Regular Code status: Full Code DVT ppx: SCD Isolation: None Dispo:Med/Tele Admission and Anticipated Discharge Date Admission Date: November 30, 2021 Supervising Physician Co-Signing Physician Notes I personally examined the patient and verified all oroan points of history and exam, discussed case, and agree with decision making with Dr Woorduff Feeling better. Not much of an appetite but mentally good. Has been up and around someprobably feels a little weak. Vitals noted, in general she is awake and alert pleasant no distress. HEENT normocephalic atraumatic mucous membranes moist. Breathing unlabored no accessory muscle use good effort. Skin shows no rashes no pallor or icterus. Neuro without focal deficits. Deliriumher altered mental status and weakness most likely was in reaction to her change of chemotherapy. Hard to rule out edema from brain metastasesbut usually this tends to be more focal deficits/headache, and her MRI looks better than beforeat any rate continue Decadron for now. Fortunately after further re view does not appear to have a septic sourceso in spite of her neutropenia we can stop antibiotics and simply follow closely. It is possible she had a degree of dehydrationcertainly her labs do not reflect to this/she did not have an DESTINEE/azotemia, but in the context of going through chemo as a cancer patient, dehydration would be a very common cause of delirium. Would follow into tomorrow to ensure no backsliding/recurrence, and then likely home tomorrow Subjective Pal is a 71 year old female with history of breast cancer w/ mets to brain, insomnia, incontinence (urge/stress), and GERD who presents after 1 week of progressive weakness. Patient is admitted due to difficulty managing condition at home and for evaluation of potential cause. Patient noted that over the last week she has been feeling progressively more weak. But 3 days ago she felt like she had no energy left and began having difficulty standing. She noted that her muscles felt weak throughout her body. This has never happened to her before and she has not had any recent medication changes. She notes that she had her last chemotherapy treatment 1 week ago. Patient endorses development of a rash around her neck and a sore throat over the last week. She denies any fevers, headaches, neck pain, rhinorrhea, or sick contacts. She denies any chest pain, shortness of breath, abdominal pain, or change in bowel/bladder habits. Today 12/01/21: - Patient notes that she is feeling much improved compared to pre-presentation - She notes that she does not remember last evening and she feels like 'she slept extremely well' - She notes a good appetite and was eating breakfast comfortably Review of Systems Review of Systems: See HPI. Physical Exam Physical Exam: Gen: NAD, alert, interactive Neuro: AO x 3, CN II-XII grossly intact, 4/5 strength upper and lower extremities HEENT: Supple, no LAD, no thyromegaly, 1 cm patch of erythema on left palate Resp:Non-labored, no wheezing/rhonchi/rales, CTAB CV:RRR, normal S1/S2, no M/R/G Abd: Soft, non-distended, no TTP, normoactive bowels, no masses Extr: 2+ dp bilaterally, no edema Skin: Monomorphic erythematous papules (morbilliform vs. photosensitivity) localized at the anterior base of the neck and upper chest Results & Data Results & Data ([facility]) Vital Signs (Past 12 Hours) Vital Signs Temp Pulse Pulse Resp BP BP Pulse Ox 12/01/21 08:45 36.6 C 97 H 18 101/67 97 12/01/21 04:00 37.1 C 88 18 102/69 97 12/01/21 01:14 106 H 12/01/21 01:33 36.8 C 106 H 16 108/72 96 12/01/21 01:15 11/30/21 22:50 98 11/30/21 22:40 99 11/30/21 22:30 97 11/30/21 22:26 98 12/01/21 00:00 118/77 O2 Del Method 12/01/21 08:45 Room Air 12/01/21 04:00 Room Air 12/01/21 01:14 12/01/21 01:33 Room Air 12/01/21 01:15 Room Air 11/30/21 22:50 11/30/21 22:40 11/30/21 22:30 11/30/21 22:26 12/01/21 00:00 Diagnostic Findings Brain MRI 12/01/21 1. Significantly motion compromised examination. 2. Again seen is multifocal intracranial metastatic disease. This appears modestly improved as compared to 11/14/2021. 3. There is no hemorrhage, midline shift, or evidence of acute ischemia. 4. There is evidence of metastatic bone disease in the upper cervical spine. No destructive calvarial lesion is clearly seen. Resident Activity Tracking Resident Involvement: Resident Care Provided Care Provided: [facility]
[2021-12-01] MEDS ORDERED: VANCOMYCIN HCL 750 MG in SODIUM CHLORIDE 0.9% 250 ML IV SCH (10:00)
--- NOTE | 2021-12-01 10:27 | Electrocardiogram Report ---
Test Reason : Blood Pressure : / mmHG Vent. Rate : 091 BPM Atrial Rate : 091 BPM P-R Int : 142 ms QRS Dur : 064 ms QT Int : 350 ms P-R-T Axes : 066 044 046 degrees QTc Int : 430 ms Poor data quality, interpretation may be adversely affected Normal sinus rhythm Normal ECG When compared with ECG of 28-JAN-2019 10:04, No significant change was found Confirmed by Sarkis Reyes ([id number]) on 12/01/2021 10:27:39 AM Referred By: Kenna Cotter Confirmed By:Sarkis Reyes
--- NOTE | 2021-12-01 10:57 | Magnetic Resonance Report ---
MRI OF THE BRAIN COMBO CLINICAL HISTORY: Change in mental status. Breast cancer status post radiation treatment. COMPARISON STUDY: CT of the brain dated 11/30/2021. MRI of the brain dated 04/19/2021. TECHNIQUE: MRI of the brain was performed utilizing various T1 and T2-weighted sequences in the axial , sagittal, and coronal planes. Contrast-enhanced sequences were acquired following the administratio n of 5 cc of Gadavist. The examination is degraded by motion artifact. FINDINGS: Brain parenchyma: There is age-related involutional change. Extensive confluent T2 signal abnormality throughout the white matter is unchanged and likely related to previous radiation treatment. There i s no hemorrhage or midline shift. There is no restricted diffusion typical for acute ischemia. Again seen is evidence of multifocal intracranial metastatic disease. This has modestly improved as compare d to the 11/14/2021 examination. Approximately 10 lesions are identified. The largest lesion is seen in the left frontal lobe on axial image #87 of 124 and measures 7 mm (previously measured 9 mm). Additi onal resources representative lesions are seen in the right frontal lobe in image #71, the right temporal lobe in image #40, and the andrés on image #29. Surrounding edema has decreased from previous. The cerebella r tonsils are normal in configuration. Ventricles, sulci, and cisterns: Prominent secondary to involutional change. Pituitary and sella: Unremarkable. Intracranial vasculature: Normal flow voids are maintained at the skull base. Orbits: The bony orbits are grossly intact. Orbital contents are normal in appearance noting a left o cular lens implant. Sinuses and mastoids: There is trace mucosal thickening within the right maxillary antrum in the ethm oid sinuses. Mild mucosal thickening is noted in the left sphenoid sinus and the right frontal sinus. The mastoid air cells are well pneumatized. Calvarium: No calvarial lesion is clearly identified. Osseous metastatic disease is noted in the uppe r cervical spine. Cervical cord: Partially visualized cervical spinal cord is normal in morphology and signal intensity . IMPRESSION: 1. Significantly motion compromised examination. 2. Again seen is multifocal intracranial metastatic disease. This appears modestly improved as compar ed to 11/14/2021. 3. There is no hemorrhage, midline shift, or evidence of acute ischemia. 4. There is evidence of metastatic bone disease in the upper cervical spine. No destructive calvarial lesion is clearly seen. ACT 112: Negative or not required by law. Electronically signed by: Abran Amezcua M.D. 12/01/2021 10:56 AM
--- NOTE | 2021-12-01 17:37 | Billing Data ---
Date of Service December 01, 2021 Coding Level of Care Code 18282 Subseq Hosp Care Lvl 3
[2021-12-02] MEDS: dexAMETHasone 6 MG in SYRINGE 0 ML IV SCH ×2 (01:35→08:45)
[2021-12-02] MEDS: LACTATED RINGER'S 1,000 ML IV SCH (06:47)
[2021-12-02] MEDS: CALCIUM 600MG + VIT D 400 IU TAB PO SCH (08:45)
[2021-12-02] MEDS: ANASTROZOLE 1 MG TAB PO SCH (08:45)
[2021-12-02] MEDS: MEGESTROL ACETATE 40 MG TAB PO SCH (08:45)
[2021-12-02] MEDS ORDERED: FILGRASTIM 480 MCG/1.6 ML VIAL SC SCH (09:00)
[2021-12-02 09:14] LABS: Albumin Globulin Ratio 1.2 (0.9-2); Albumin Level 3.1 gm/dl (3.4-5.0); BUN Creatinine Ratio 22.6 (10-20); Bilirubin,Total 0.5 mg/dl (0.2-1.0); Calcium 8.2 mg/dl (8.5-10.1); Creatinine Clr Calc Pharmacy 78.1 ml/min; Est GFR (African American) 110.7 ml/min; Est GFR (Non-African American) 95.5 ml/min; Globulin 2.5 gm/dl (2.5-4.0); Magnesium 1.7 mg/dl (1.7-2.4); Potassium 3.3 mmol/L (3.5-5.1); Total Protein 5.6 gm/dl (6.0-8.3)
[2021-12-02 09:16] LABS: Basophils # (auto) 0.01 K/uL (0-0.2); Basophils % (auto) 0.1 %; Hematocrit (blood only) 29.6 % (34.1-44.9); Immature Granulocytes # (auto) 0.11 K/uL (0.00-0.02); Immature Granulocytes % (auto) 1.3 %; Lymphocytes # (auto) 1.49 K/uL (1.2-3.4); Lymphocytes % (auto) 17.1 %; Mean Corpuscular Hemoglobin 28.9 pg (25.0-34.0); Mean Corpuscular Hgb Conc 33.8 g/dL (32.0-36.0); Mean Corpuscular Volume 85.5 fL (80.0-100.0); Mean Platelet Volume 9.1 fL (9.4-12.3); Monocytes # (auto) 1.57 K/uL (0.24-0.82); Neutrophils # (auto) 5.52 K/uL (1.4-6.5); Neutrophils % (auto) 63.5 %; Nucleated RBC # (auto) 0.07 K/uL (0-0); Nucleated RBC % (auto) 0.8 %; Platelet Count 259 K/uL (130-400); Polychromasia 1+; RDW Standard Deviation 39.8 fL (36.4-46.3); Red Blood Count 3.46 M/uL (3.93-5.22)
[2021-12-02 12:01] VITALS: PULSE 76; TEMP 98.4; O2SAT 97
[2021-12-02 12:48] VITALS: BP 100/69
--- NOTE | 2021-12-02 19:06 | Discharge Summary ---
Date of Service December 02, 2021 Admission HPI Per Admitting Provider The patient is a 71-year-old female with a past medical history including metastatic breast cancer to brain, insomnia, urge and stress urinary incontinence, and GERD. She is brought to the emergency department with report as noted by above. The patient is not able to contribute significantly to her HPI or review of systems because of these underlying medical problems Principal Diagnosis Transient delirium Discharge Exam General she is awake and alert pleasant no distress. HEENT normocephalic atraumatic mucous membranes moist. Cardio is regular without rubs murmurs or gallops. Lungs clear to auscultation bilaterally no rales rhonchi or wheeze with good effort. Skin shows no rashes no pallor or icterus. Extremities without sinus clubbing or edema no calf tenderness. Neuro without focal deficits. Discharge Data Allergies Allergy/AdvReac Type Severity Reaction Status Date / Time No Known Allergies Allergy Verified 11/30/21 23:24 Consultations 11/30/21 23:50 ED Decision to Admit Stat Ordered Studies 11/30/21 20:21 CT head/brain wo con Stat 12/01/21 00:05 MR brain wo/w con Urgent Hospital Course (1) Breast cancer metastasized to brain: Pal is a 71 year old female with history of breast cancer w/ mets to brain, insomnia, incontinence (urge/stress), and GERD who presents after 1 week of progressive weakness. Patient is admitted due to difficulty managing condition at home and for evaluation of potential cause. Metastatic Breast Cancer (w/ mets to brain) - Follows with Dr. Cotter and Dr. Adrian ([facility]) - Current Chemo Therapy: Docetaxel, Herceptin and Perjeta (e2afdck x 6 cycles) - Begun 11/22 * Developed rash on neck shortly after chemotherapy + began feeling progressively weak shortly after * She is to take dexamethasone day before, day of, and day after chemotherapy - has Rx to take Dexamethasone 4 mg daily when not receiving chemo * Dexamethasone thought to be helpful for edema around her lesions and her feeling of imbalance * Pt. has a lesion in her brainstem - thought to be the cause of her imbalance - she is to receive stereotactic radiation - ED Course: * Patient presented because of feeling generally weak. * CBC and chemistry panel revealed a significant neutropenia (0.02) and leukopenia (1.43). * ECG was normal. Chest x-ray was negative. CT scan of the head did not show any acute pathology. Chronic findings noted. Urinalysis was pending. * Patient was hydrated.COVID testing performed and negative. * Initiated further management in the hospital as she is not doing well at home. - Brain MRI - Given dexamethasone while inpatient Weakness/Altered Mental Status - Likely 2/2 toxic delirium relative to chemotherapy, possibly also dehydration contributing. Unlikely infectious origin (initially on empiric antibiotics given her neutropenia and unclear picturethese were stopped yesterday, and she has shown no deterioration) -Hydrated and improved -Safe/stable for home -The main open question that I discussed with the patient is how much benefit she may or may not have gotten from the steroids. She was on fairly significant doses of dexamethasone that may have simply help with feeling lousy from the chemo, she may have simply gotten better from the IV fluids, but it is hard to definitively rule out that it did not help with some degree of cerebral edemathat said with hindsight her clinical picture did not fit that much with brain metsespecially given that her MRI showed improvement. To that end, she has had steroids through today, will have her take an additional dose tomorrow, she has her regular dosing on Saturday before radiation, and then with close supervision and follow-up, we will have her cautiously go back to her prior regimen that really centers around chemo and radiation. Neutropenia -Given G-CSF while here, white count improved. (2) Weakness: (3) Urge and stress incontinence: (4) Insomnia: (5) Neutropenia: Plan FEN: Regular Code status: Full Code DVT ppx: SCD Isolation: None Dispo:Med/Tele Total Time Total Time Spent Total Time Spent (In Minutes): Less than 30 Discharge Plan Discharge Items Patient Disposition: Home - Self-Care Reason For Visit: CHEMO, ALLERGIC REACTION Discharge Diagnosis: chemo reaction, mild dehydration - improved Activity: Resume your previous activity Non-emergency contact: Primary Care Provider and Oncologist Call non-emergency contact if: you have any medication questions and your symptoms worsen Follow-up/Referrals: Jatin Simon MD [Primary Care Provider] - 12/12/21 3:45 pm Diet: Regular Addtl Attending Provider Instructions: take an additional dose of dexamethasone tomorrow, and then as scheduled on saturday. after that, try to cautiously hold off - as we've discussed i really think this was all reaction to chemo, and dehydration. fortunately we don't see anything infectious going on - even once you were off the antibiotics for a day. Pending Studies at Discharge: No Stand-Alone Forms: My [facility], Smoking Cessation Medications and DC Order Prescriptions: Continued ondansetron HCl [Zofran] 8 mg tablet 8 mg PO Q8H PRN (Reason: Nausea) calcium carbonate-vitamin D3 [Caltrate with Vitamin D3] 600 mg-20 mcg (800 unit) tablet 1 tab PO DAILY megestrol 40 mg tablet 40 mg PO DAILY Rx Instructions: per trazodone 50 mg tablet 100 mg PO HS PRN (Reason: insomnia) Qty: 180 3RF memantine [Namenda Titration Rafat] 5-10 mg tablets,dose pack See Rx Instructions .ROUTE .COMPLEX Qty: 49 0RF Rx Instructions: as directed; oxybutynin chloride 10 mg tablet extended release 24 hr See Rx Instructions .ROUTE .COMPLEX Qty: 90 3RF Dose Instruction: TAKE 1 TABLET BY MOUTH EVERY DAY Rx Instructions: TAKE 1 TABLET BY MOUTH EVERY DAY anastrozole [Arimidex] 1 mg tablet 1 mg PO DAILY Qty: 30 2RF potassium chloride 10 mEq tablet extended release 10 meq PO DAILY pantoprazole 40 mg tablet,delayed release (DR/EC) 40 mg PO DAILY dexamethasone 4 mg tablet 4 mg PO DIRECTED Rx Instructions: Take 1 pill daily other than the days that you take the pre - post treatment for chemotherapy. Discharge Orders: Discharge Order (Routine); Ordered 12/02/21 Ordered By: Patrick Marie Admission Data Admit Date/Time: 11/30/21 23:33 Attending Provider: Patrick Marie Admit Provider: Ritesh Hood Primary Care Provider: Jatin Simon Other Providers: Ritesh Hood Other Interventions: Discharge Summary Assessment (RN) Last Done: 12/02/21 12:48 Coding Level of Care Code D/C DAY MANAGEMENT <30 MINS Diagnoses Breast cancer metastasized to brain C50.919; C79.31 Weakness R53.1 Urge and stress incontinence N39.46 Insomnia G47.00 Neutropenia D70.9
--- NOTE | 2021-12-02 19:07 | Billing Data ---
Date of Service December 02, 2021 Coding Level of Care Code D/C DAY MANAGEMENT <30 MINS Comment disregard [id number] - was in error
--- NOTE | 2021-12-02 19:07 | Billing Data ---
Date of Service December 02, 2021 Coding Level of Care Code D/C DAY MANAGEMENT <30 MINS
== END 2021-12-02 13:24 | disposition home or self-care (01) | DRG 91 ==
LOC: ED 18:53 → SUATTDRO 23:33 → 2N 23:33
DX: T45.1X5A Adverse effect of antineoplastic and immunosuppressive drugs, initial encounter; G93.6 Cerebral edema; K21.9 Gastro-esophageal reflux disease without esophagitis; R41.0 Disorientation, unspecified; D70.9 Neutropenia, unspecified; G92.8 Other toxic encephalopathy; C79.31 Secondary malignant neoplasm of brain; R53.1 Weakness; C50.919 Malignant neoplasm of unspecified site of unspecified female breast; E86.0 Dehydration; Y92.009 Unspecified place in unspecified non-institutional (private) residence as the place of occurrence of the external cause; N39.46 Mixed incontinence; G47.00 Insomnia, unspecified